=== PATIENT | female | born 1950 | race Hispanic/Latino ===

== ENCOUNTER 2018-05-30 20:45 | Inpatient (IN) | payer MEDICARE, BC ==
[2018-05-30 20:46] VITALS: PULSE 158; BMI 19.9
[2018-05-30] MEDS ORDERED: Albuterol 0.083% Inhal Sol (2.5 mg/3 mL) UD IH STA (20:54)
--- NOTE | 2018-05-30 21:08 | C.PDOC ---
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 Time Seen by Provider: 05/30/18 20:48 Chief Complaint (Nursing): Shortness Of Breath History Per: EMS History/Exam Limitations: clinical condition Onset/Duration Of Symptoms: Hrs Current Symptoms Are (Timing): Still Present Current Respiratory Medications: See Home Med List Severity: Moderate Past Medical History Reviewed: Historical Data, Nursing Documentation, Vital Signs Vital Signs: Last Vital Signs Temp 97.4 F L 05/30/18 20:50 Pulse 109 H 05/30/18 20:50 Resp 39 H 05/30/18 20:50 BP 158/74 H 05/30/18 20:50 Pulse Ox 83 L 05/30/18 20:50 - Medical History PMH: CAD, HTN, Hypercholesterolemia, Hypothyroidism - [facility] Procedures CONTR CEREBR ARTERIOGRAM (02/14/14) CONTRAST AORTOGRAM (02/14/14) ENTERAL INFUSION OF CONCENTRATED NUT. SUBSTANCES (03/20/14) INSERTION OF FEEDING DEVICE INTO STOMACH, PERC APPROACH (02/08/18) INSERTION OF TWO VASCULAR STENTS (02/14/14) NEPHROTOMOGRAM NEC (11/01/99) OTHER ESOPHAGOSCOPY (11/01/99) PERC INSERTION OF CAROTID ARTERY STENT(S) (02/14/14) PERCUTANEOUS ANGIOPLASTY OF EXTRACRANIAL VESSEL(S) (02/14/14) PROCEDURE ON TWO VESSELS (02/14/14) Family History: States: No Known Family Hx - Social History Hx Alcohol Use: No Hx Substance Use: No - Immunization History Hx Tetanus Toxoid Vaccination: No Review Of Systems Review Of Systems: ROS cannot be obtained secondary to pt's inabilty to answer questions. Physical Exam - Physical Exam Appears: In Acute Distress (in moderate to severe respiratory distress), Chr onically Ill Skin: Normal Color, Warm, Dry Head: Normacephalic Eye(s): right: Normal Inspection, left: Other (blindness, unable to blink) Oral Mucosa: Moist Neck: Other (left neck chronic wound with dressing) Cardiovascular: Rhythm Regular (tachycardic ), Murmur (holosystolic murmur 3/6) Respiratory: Accessory Muscle Use (moderate), No Rales, Rhonchi (B/L ), Wheezing (mild) Gastrointestinal/Abdominal: Normal Exam, Bowel Sounds, Soft, No Tenderness, Other (PEG tube present) Extremity: Normal ROM, No Pedal Edema, No Calf Tenderness Pulses: Left Dorsalis Pedis: Normal, Right Dorsalis Pedis: Normal Neurological/Psych: Other (nonverbal but awake & alert, able to follow commands) ED Course And Treatment - Laboratory Results Result Diagrams: 06/08/18 06:23 06/08/18 06:23 ECG: Interpreted By Me, Viewed By Me (Sinus tachycardia 103 bpm, normal axis, 1mm ST depressions II, aVF, V4-V6) ECG Interpretation: Abnormal O2 Sat by Pulse Oximetry: 83 (RA) Pulse Ox Interpretation: Abnormal Progress Note: Blood work, CXR, EKG ordered and reviewed. Patient placed on Bipap emergently. Albuterol treatment and small IV NS bolus given. CXR shows right sided infiltrates - broad spectrum antibiotics given (patient is in NH). As per family at bedside, patient was just discharged from [facility] on thursday (05/28) for pneumonia. PMD is Dr. Becky Lang at [place]. Patient does not have local oncologist, oncology care was happening at [facility]. 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 Critical Care Time - Critical Care Note Total Time (in mins): 35 Documented critical care: time excludes all time spent performing seperately billable procedures. Disposition - Disposition Disposition: HOSPITALIZED Disposition Time: 23:22 Condition: STABLE - Clinical Impression Clinical Impression: Elevated brain natriuretic peptide (BNP) level, Dyspnea, Leukocytosis, Pneumonia Decision To Admit - Pt Status Changed To: Hospital Disposition Of: Inpatient - Admit Certification Admit to Inpatient:: After my assessment, the patient will require hospitalization for at least two midnights. This is because of the severity of symptoms shown, intensity of services needed, and/or the medical risk in this patient being treated as an outpatient. - InPatient: Physician Admission Certification: I certify that this patient requires 2 or more midnights of care for the following reason:: see notes - . Bed Request Type: Telemetry Admitting Physician: Faviola Catherine Patient Diagnosis: Elevated brain natriuretic peptide (BNP) level, Leukocytosis, Dyspnea, Pneumonia
[2018-05-30 21:09] LABS: BASO # 0.2 K/uL (0.0-0.2); BASO % 0.5 % (0.0-2.0); EOS # 0.3 K/uL (0.0-0.7); EOS % 0.7 % (0.0-4.0); HEMOGLOBIN 11.4 g/dL (11.0-16.0); LYMPH # 2.1 K/uL (1.0-4.3); LYMPH % 4.7 % (20.0-40.0); MEAN CELL VOLUME 77.4 fL (81.0-99.0); MEAN CORPUSCULAR HEMOGLOBIN 24.1 pg (27.0-31.0); MEAN CORPUSCULAR HGB CONC 31.1 g/dL (33.0-37.0); MEAN PLATELET VOLUME 7.9 fL (7.2-11.7); MONO # 1.2 K/uL (0.0-0.8); MONO % 2.6 % (0.0-10.0); NEUT # 41.2 K/uL (1.8-7.0); NEUT % 91.5 % (50.0-75.0); PLATELET COUNT 844 K/uL (130-400); RBC 4.71 Mil/uL (3.80-5.20); RED CELL DISTRIBUTION WIDTH 18.2 % (11.5-14.5)
[2018-05-30 21:19] LABS: ALBUMIN 4.2 g/dL (3.5-5.0); ALT/SGPT 19 U/L (9-52); AST/SGOT 32 U/L (14-36); BLOOD UREA NITROGEN 42 mg/dL (7-17); CALCIUM 9.7 mg/dl (8.6-10.4); GFR NON-AFRICAN AMERICAN > 60; INR 1.7; PROTHROMBIN TIME 18.9 SECONDS (9.7-12.2)
[2018-05-30 21:22] LABS: ABG ALLEN TEST PO; ARTERIAL BLOOD GAS HCO3 28.6 mmol/L (21-28); ARTERIAL BLOOD GAS O2 SAT 100.2 % (95-98); ARTERIAL BLOOD GAS PCO2 51 mm/Hg (35-45); ARTERIAL BLOOD GAS PH 7.39 (7.35-7.45); ARTERIAL BLOOD GAS PO2 143 mm/Hg (80-100); ARTERIAL BLOOD GAS TCO2 32.5 mmol/L (22-28)
[2018-05-30] MEDS ORDERED: Vancomycin 1 GM 1 GM/250 ML BAG IV STA (21:26)
[2018-05-30] MEDS ORDERED: Cefepime 1 GM in Sodium Chloride 0.9% 50 ML IVPB STA (21:27)
[2018-05-30] MEDS ORDERED: Moxifloxacin IV 400mg/250ml NS 400 MG/250 ML BAG IV STA (21:27)
[2018-05-30] MEDS ORDERED: Sodium Chloride 0.9% 500 ML IV ONE (21:28)
[2018-05-30 21:31] LABS: B-TYPE NATRIURETIC PEPTIDE 1010 pg/mL (0-900); CK-MB 1.14 ng/mL (0.0-3.38)
[2018-05-30 21:37] LABS: BANDS 8 % (0-2); LYMPHOCYTE 5 % (20-40); MONOCYTE 2 % (0-10); NEUTROPHIL 85 % (50-75); TOTAL CELLS COUNTED 100
[2018-05-30 21:38] LABS: PLATELET ESTIMATE MARKEDLY INCREASED (NORMAL)
[2018-05-30 21:39] LABS: ANISOCYTOSIS SLIGHT; HYPOCHROMIC SLIGHT; LARGE PLATELETS PRESENT; MICROCYTOSIS SLIGHT; OVALOCYTES SLIGHT; POIKILOCYTOSIS SLIGHT; POLYCHROMIC SLIGHT; TOXIC GRANULATION PRESENT
[2018-05-30] MEDS ORDERED: Albuterol 0.083% Inhal Sol (2.5 mg/3 mL) UD ONE (21:40)
[2018-05-30] MEDS ORDERED: Moxifloxacin IV 400mg/250ml NS 400 MG/250 ML BAG IVPB ONE (21:42)
[2018-05-30] MEDS ORDERED: Cefepime 1 GM in Sodium Chloride 0.9% 100 ML IVPB STA (21:54)
[2018-05-30] MEDS ORDERED: Vancomycin 1 GM 1 GM/250 ML BAG IVPB ONE (22:17)
[2018-05-30] MEDS ORDERED: Iodixanol 320 MG/ML 100 ML BOTTLE IV ONE (22:43)
[2018-05-31] MEDS ORDERED: oxyCODONE 5 mg Immediate Release Tab GT PRN (02:01)
[2018-05-31] MEDS ORDERED: Carboxymethylcellulose 1% Ophth Soln OU PRN (02:30)
[2018-05-31] MEDS: Levothyroxine 25 MCG TAB GT SCH (05:37)
[2018-05-31] MEDS: Albuterol-Ipratrop 3 mg / 0.5 (3 ml) UD INH SCH ×3 (07:29→19:23)
--- NOTE | 2018-05-31 08:44 | RAD ---
Date of service: 05/30/2018 PROCEDURE: CHEST RADIOGRAPH, 1 VIEW HISTORY: SOB COMPARISON: None available. FINDINGS: LUNGS: The lungs are hyperinflated. There are reticulonodular opacities in the right lung. No focal consolidation PLEURA: No pneumothorax or pleural fluid seen. CARDIOVASCULAR: Normal. OSSEOUS STRUCTURES: No significant abnormalities. VISUALIZED UPPER ABDOMEN: Normal. OTHER FINDINGS: None. IMPRESSION: Reticulonodular opacities in the right lung may represent nonspecific pneumonitis. No lobar pneumonia. Follow-up is advised.
[2018-05-31] MEDS: oxyCODONE 5 mg Immediate Release Tab GT PRN ×2 (10:19→23:30)
--- NOTE | 2018-05-31 11:14 | CT ---
Date of service: 05/30/2018 CTA chest PE protocol Indication: malignancy, dyspnea, r/o PE Technique: Contiguous axial images were obtained through the chest with intravenous contrast enhancement. Sagittal and coronal reconstructions were generated and reviewed. This CT exam was performed using 1 or more of the following dose reduction techniques: Automated exposure control, adjustment of the MAA and/or kV according to patient size, and/or use of iterative reconstruction technique. IV contrast: 100 mL Visipaque IV Radiation dose (DLP): 256.07 MGy-cm. Comparison: Chest x-ray performed 05/30/18 Findings: The heart appears within normal limits of size. Coronary artery calcifications. Prosthetic cardiac valve. Extensive bilateral hilar adenopathy. No large central or segmental pulmonary embolus evident. No focal consolidation. No pleural effusion. No pneumothorax. Innumerable scattered irregular and spiculated lung nodules consistent with metastatic disease. Scattered tree-in-bud like nodular opacities present throughout both lung benton with associated ground-glass confluent opacities. Limited visualized portions of the upper abdomen; percutaneous gastrostomy tube. Degenerative changes. Osseous demineralization. Impression: No large central or segmental pulmonary embolus identified. Innumerable bilateral nodules which appear irregular and spiculated; consistent with metastatic disease. Scattered tree-in-bud like nodularity and ground-glass infiltrates; superimposed infection is not excluded. Extensive bilateral hilar adenopathy. Percutaneous gastrostomy tube. Additional findings as above. Preliminary impression was provided by [facility].
--- NOTE | 2018-05-31 12:43 | CP.PCM.CON ---
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 AWAKE ALERT + SOB AT REST DENIES PAIN LARGE WOUND LEFT NECK WITH FACIAL WEA KNESS LEFT SIDE RALES AT BASES - Medical History PMH: CAD, HTN, Hypercholesterolemia, Hypothyroidism - [facility] Procedures CONTR CEREBR ARTERIOGRAM (02/14/14) CONTRAST AORTOGRAM (02/14/14) ENTERAL INFUSION OF CONCENTRATED NUT. SUBSTANCES (03/20/14) INSERTION OF FEEDING DEVICE INTO STOMACH, PERC APPROACH (02/08/18) INSERTION OF TWO VASCULAR STENTS (02/14/14) NEPHROTOMOGRAM NEC (11/01/99) OTHER ESOPHAGOSCOPY (11/01/99) PERC INSERTION OF CAROTID ARTERY STENT(S) (02/14/14) PERCUTANEOUS ANGIOPLASTY OF EXTRACRANIAL VESSEL(S) (02/14/14) PROCEDURE ON TWO VESSELS (02/14/14) Past Patient History - Infectious Disease Hx of Infectious Diseases: None - Tetanus Immunizations Tetanus Immunization: Unknown - Past Medical History & Family History Past Medical History?: Yes - Past Social History Smoking Status: Former Smoker - CARDIAC Hx Cardiac Disorders: Yes Hx Hypercholesterolemia: Yes Hx Hypertension: Yes - PULMONARY Hx Respiratory Disorders: No - NEUROLOGICAL Hx Neurological Disorder: Yes HX Cerebrovascular Accident: Yes (R hemiparesis) - HEENT Hx HEENT Problems: Yes Other/Comment: right eye droop - RENAL Hx Chronic Kidney Disease: No - ENDOCRINE/METABOLIC Hx Endocrine Disorders: Yes Hx Hypothyroidism: Yes - HEMATOLOGICAL/ONCOLOGICAL Hx Blood Disorders: No Hx Blood Transfusions: No Hx Cancer: Yes (Parotid Glands) - INTEGUMENTARY Hx Dermatological Problems: No - MUSCULOSKELETAL/RHEUMATOLOGICAL Hx Musculoskeletal Disorders: No Hx Falls: No - GASTROINTESTINAL Hx Gastrointestinal Disorders: No Other/Comment: PEG tube feeding secondary to CA -Parotid Glands - GENITOURINARY/GYNECOLOGICAL Hx Genitourinary Disorders: No - PSYCHIATRIC Hx Psychophysiologic Disorder: No Hx Substance Use: No - SURGICAL HISTORY Hx Surgeries: Yes Hx Open Heart Surgery: Yes - ANESTHESIA Hx Anesthesia: Yes Hx Anesthesia Reactions: No Hx Malignant Hyperthermia: No Has any member of the family had a problem w/ anesthesia?: No Meds Allergies/Adverse Reactions: Allergies Allergy/AdvReac Type Severity Reaction Status Date / Time No Known Allergies Allergy Verified 05/30/18 20:53 - Medications Medications: Current Medications Albuterol/Ipratropium (Duoneb 3 Mg/0.5 Mg (3 Ml) Ud) 3 ml INH RQ6 [facility] Last Admin: 05/31/18 07:29 Dose: 3 ml Amlodipine Besylate (Norvasc) 10 mg GT DAILY [facility] Apixaban (Eliquis) 5 mg GT BID [facility] Last Admin: 05/31/18 10:12 Dose: 5 mg Artificial Tears (Artificial Tears Refresh Celluvisc) 0 ml OU Q6H PRN Aspirin (Aspirin Chewable) 81 mg GT DAILY [facility] Last Admin: 05/31/18 10:11 Dose: 81 mg Docusate Sodium (Colace) 100 mg GT BID [facility] Last Admin: 05/31/18 10:11 Dose: 100 mg Famotidine (Pepcid) 20 mg GT Q12 [facility] Last Admin: 05/31/18 10:10 Dose: 20 mg Furosemide (Lasix) 20 mg PEG DAILY [facility] Last Admin: 05/31/18 10:26 Dose: Not Given Moxifloxacin HCl (Avelox Iv 400mg/250ml Ns) 400 mg in 250 mls @ 167 mls/hr IVPB Q24H [facility]; Protocol Levothyroxine Sodium (Synthroid) 25 mcg GT DAILY@0630 [facility] Last Admin: 05/31/18 05:37 Dose: 25 mcg Metoprolol Tartrate (Lopressor) 25 mg GT Q12 [facility] Last Admin: 05/31/18 10:26 Dose: Not Given Ondansetron HCl (Zofran Tab) 4 mg GT Q6 PRN PRN Reason: Nausea/Vomiting Oxycodone HCl (Oxycodone Immediate Release Tab) 5 mg GT Q6 PRN PRN Reason: Pain, moderate (4-7) Last Admin: 05/31/18 10:19 Dose: 5 mg Rosuvastatin Calcium (Crestor) 5 mg PO HS [facility] Saliva Substitute (Mouth Kote 236 Ml) 0 ml MM TID NARENDRA Scopolamine (Transderm-Scop) 1 patch TD Q72 [facility] Sennosides (Senokot Tab) 8.6 mg PEG HS [facility] Physical Exam - Constitutional Appears: Cachectic - Head Exam Head Exam: NORMOCEPHALIC - Eye Exam Eye Exam: absent: Scleral icterus - ENT Exam ENT Exam: Mucous Membranes Dry - Neck Exam Neck exam: Negative for: Lymphadenopathy - Respiratory Exam Respiratory Exam: Decreased Breath Sounds, Rales - Cardiovascular Exam Cardiovascular Exam: REGULAR RHYTHM - GI/Abdominal Exam GI & Abdominal Exam: Diminished Bowel Sounds - Rectal Exam Rectal Exam: Deferred - Exam Exam: NORMAL INSPECTION - Extremities Exam Extremities exam: Negative for: pedal edema - Back Exam Back exam: absent: CVA tenderness (L), CVA tenderness (R) - Neurological Exam Neurological exam: Alert, Oriented x3 - Psychiatric Exam Psychiatric exam: Depressed - Skin Skin Exam: Dry Results - Vital Signs Recent Vital Signs: Last Vital Signs Temp 97.3 F L 05/31/18 07:10 Pulse 72 05/31/18 08:48 Resp 18 05/31/18 07:10 BP 101/67 05/31/18 10:26 Pulse Ox 100 05/31/18 07:10 - Labs Result Diagrams: 05/30/18 21:02 05/30/18 21:02 Labs: Laboratory Results - last 24 hr 05/30/18 05/30/18 05/30/18 21:02 21:02 21:02 WBC 45.0 H* RBC 4.71 Hgb 11.4 Hct 36.4 MCV 77.4 L MCH 24.1 L MCHC 31.1 L RDW 18.2 H Plt Count 844 H MPV 7.9 Neut % (Auto) 91.5 H Lymph % (Auto) 4.7 L Atlantic % (Auto) 2.6 Eos % (Auto) 0.7 Baso % (Auto) 0.5 Neut # (Auto) 41.2 H Lymph # (Auto) 2.1 [place] # (Auto) 1.2 H Eos # (Auto) 0.3 Baso # (Auto) 0.2 Neutrophils % (Manual) 85 H Band Neutrophils % 8 H Lymphocytes % (Manual) 5 L Monocytes % (Manual) 2 Toxic Granulation Present Platelet Estimate Markedly increased H Large Platelets Present Polychromasia Slight Hypochromasia (manual) Slight Poikilocytosis (manual Slight Anisocytosis (manual) Slight Microcytosis (manual) Slight Ovalocytes Slight Smear Path Review PT 18.9 H INR 1.7 APTT 36 H Puncture Site pCO2 pO2 HCO3 ABG pH ABG Total CO2 ABG O2 Saturation ABG Base Excess Gio Test ABG Potassium A-a O2 Difference Respiratory Index Glucose Lactate Vent Mode FiO2 Inspiratory BiPAP Expiratory BiPAP Sodium 143 Potassium 5.2 Chloride 95 L Carbon Dioxide 30 Anion Gap 23 H BUN 42 H Creatinine 0.8 Est GFR ( Amer) > 60 Est GFR (Non-Af Amer) > 60 Random Glucose 258 H Calcium 9.7 Total Bilirubin 0.5 AST 32 ALT 19 Alkaline Phosphatase 120 Total Creatine Kinase 24 L CK-MB (Mass) 1.14 Troponin I 0.0160 NT-Pro-B Natriuret Pep 1010 H Total Protein 8.3 Albumin 4.2 Globulin 4.1 H Albumin/Globulin Ratio 1.0 Arterial Blood Potassium 05/30/18 21:19 WBC RBC Hgb Hct MCV MCH MCHC RDW Plt Count MPV Neut % (Auto) Lymph % (Auto) Atlantic % (Auto) Eos % (Auto) Baso % (Auto) Neut # (Auto) Lymph # (Auto) Atlantic # (Auto) Eos # (Auto) Baso # (Auto) Neutrophils % (Manual) Band Neutrophils % Lymphocytes % (Manual) Monocytes % (Manual) Toxic Granulation Platelet Estimate Large Platelets Polychromasia Hypochromasia (manual) Poikilocytosis (manual Anisocytosis (manual) Microcytosis (manual) Ovalocytes Smear Path Review PT INR APTT Puncture Site Lr pCO2 51 H pO2 143 H HCO3 28.6 H ABG pH 7.39 ABG Total CO2 32.5 H ABG O2 Saturation 100.2 H ABG Base Excess 4.7 H Gio Test Po ABG Potassium 4.1 A-a O2 Difference 506.0 Respiratory Index 3.5 Glucose 267 H Lactate 2.0 Vent Mode Bipap FiO2 100.0 Inspiratory BiPAP 14 Expiratory BiPAP 5 Sodium 139.0 Potassium Chloride 105.0 Carbon Dioxide Anion Gap BUN Creatinine Est GFR ( Amer) Est GFR (Non-Af Amer) Random Glucose Calcium Total Bilirubin AST ALT Alkaline Phosphatase Total Creatine Kinase CK-MB (Mass) Troponin I NT-Pro-B Natriuret Pep Total Protein Albumin Globulin Albumin/Globulin Ratio Arterial Blood Potassium 4.1 Assessment & Plan (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
--- NOTE | 2018-05-31 18:34 | CARD ---
APPROVED REPORT Date of service: 05/30/2018 EKG Measurement Heart [id number] <Conclusion> Sinus tachycardia Nonspecific ST and T wave abnormality Abnormal ECG
[2018-05-31] MEDS: Moxifloxacin IV 400mg/250ml NS 400 MG/250 ML BAG IVPB SCH (22:32)
[2018-06-01] MEDS ORDERED: Oseltamivir 6 MG/ML PO ONE (00:48)
--- NOTE | 2018-06-01 01:27 | CP.PCM.HP ---
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 Present on Admission - Present on Admission Any Indicators Present on Admission: Yes Review of Systems - Review of Systems Systems not reviewed;Unavailable: Respiratory Distress - Constitutional Constitutional: As Per HPI - EENT Eyes: As Per HPI Ears: As Per HPI Nose/Mouth/Throat: As Per HPI - Breasts Breasts: As Per HPI - Cardiovascular Cardiovascular: As Per HPI - Respiratory Respiratory: As Per HPI - Gastrointestinal Gastrointestinal: As Per HPI - Musculoskeletal Musculoskeletal: As Per HPI - Integumentary Integumentary: As Per HPI - Neurological Neurological: As Per HPI - Psychiatric Psychiatric: As Per HPI - Endocrine Endocrine: As Per HPI - Hematologic/Lymphatic Hematologic: As Per HPI Past Patient History - Infectious Disease Hx of Infectious Diseases: None - Tetanus Immunizations Tetanus Immunization: Unknown - Past Medical History & Family History Past Medical History?: Yes - Past Social History Smoking Status: Former Smoker - CARDIAC Hx Cardiac Disorders: Yes Hx Hypercholesterolemia: Yes Hx Hypertension: Yes - PULMONARY Hx Respiratory Disorders: No - NEUROLOGICAL Hx Neurological Disorder: Yes HX Cerebrovascular Accident: Yes (R hemiparesis) - HEENT Hx HEENT Problems: Yes Other/Comment: right eye droop - RENAL Hx Chronic Kidney Disease: No - ENDOCRINE/METABOLIC Hx Endocrine Disorders: Yes Hx Hypothyroidism: Yes - HEMATOLOGICAL/ONCOLOGICAL Hx Blood Disorders: No Hx Blood Transfusions: No Hx Cancer: Yes (Parotid Glands) - INTEGUMENTARY Hx Dermatological Problems: No - MUSCULOSKELETAL/RHEUMATOLOGICAL Hx Musculoskeletal Disorders: No Hx Falls: No - GASTROINTESTINAL Hx Gastrointestinal Disorders: No Other/Comment: PEG tube feeding secondary to CA -Parotid Glands - GENITOURINARY/GYNECOLOGICAL Hx Genitourinary Disorders: No - PSYCHIATRIC Hx Psychophysiologic Disorder: No Hx Substance Use: No - SURGICAL HISTORY Hx Surgeries: Yes Hx Open Heart Surgery: Yes - ANESTHESIA Hx Anesthesia: Yes Hx Anesthesia Reactions: No Hx Malignant Hyperthermia: No Has any member of the family had a problem w/ anesthesia?: No Meds Allergies/Adverse Reactions: Allergies Allergy/AdvReac Type Severity Reaction Status Date / Time No Known Allergies Allergy Verified 05/30/18 20:53 Physical Exam - Constitutional Appears: No Acute Distress - Head Exam Head Exam: ATRAUMATIC, NORMAL INSPECTION, NORMOCEPHALIC - Eye Exam Eye Exam: EOMI, Normal appearance - ENT Exam ENT Exam: Mucous Membranes Moist, Normal Oropharynx - Neck Exam Neck exam: Positive for: Full Rom - Respiratory Exam Respiratory Exam: Accessory Muscle Use - Cardiovascular Exam Cardiovascular Exam: Tachycardia - Extremities Exam Extremities exam: Positive for: full ROM Results - Vital Signs Recent Vital Signs: Last Vital Signs Temp 97.8 F 05/31/18 23:25 Pulse 88 05/31/18 23:25 Resp 20 05/31/18 23:25 BP 111/79 05/31/18 23:25 Pulse Ox 100 05/31/18 23:25 - Labs Result Diagrams: 05/30/18 21:02 05/30/18 21:02 Labs: Laboratory Results - last 24 hr 05/30/18 05/31/18 05/31/18 21:02 15:34 21:04 Smear Path Review POC Glucose (mg/dL) 134 H 148 H Influenza Typ A,B ([facility]) 05/31/18 22:16 Smear Path Review POC Glucose (mg/dL) Influenza Typ A,B ([facility]) Pos for influenza b H Assessment & Plan (1) Flu Status: Acute (2) CVA (cerebral vascular accident) Status: Acute (3) Carcinoma of parotid gland Status: Acute (4) Carotid artery occlusion and stenosis Status: Acute (5) DVT (deep venous thrombosis) Status: Acute (6) Fever Status: Acute (7) Leukocytosis Status: Acute (8) New onset atrial fibrillation Status: Acute (9) Pneumonia Status: Acute (10) Sepsis Status: Acute (11) Urinary tract infection Status: Acute (12) Wound dehiscence, surgical Status: Acute (13) Wound infection Status: Acute (14) CVA (cerebrovascular accident) Status: Chronic (15) Aphasia Status: Resolved - Assessment and Plan (Free Text) Plan: id is on the case . tame flu started rest , pul on the case , will f/u
[2018-06-01] MEDS: Levothyroxine 25 MCG TAB GT SCH (05:35)
--- NOTE | 2018-06-01 06:47 | CP.PCM.CON ---
History of Present Illness - History of Present Illness History of Present Illness: 67 F with multiple medical problems admitted for dyspnea Past Patient History - Infectious Disease Hx of Infectious Diseases: None - Tetanus Immunizations Tetanus Immunization: Unknown - Past Medical History & Family History Past Medical History?: Yes - Past Social History Smoking Status: Former Smoker - CARDIAC Hx Cardiac Disorders: Yes Hx Hypercholesterolemia: Yes Hx Hypertension: Yes - PULMONARY Hx Respiratory Disorders: No - NEUROLOGICAL Hx Neurological Disorder: Yes HX Cerebrovascular Accident: Yes (R hemiparesis) - HEENT Hx HEENT Problems: Yes Other/Comment: right eye droop - RENAL Hx Chronic Kidney Disease: No - ENDOCRINE/METABOLIC Hx Endocrine Disorders: Yes Hx Hypothyroidism: Yes - HEMATOLOGICAL/ONCOLOGICAL Hx Blood Disorders: No Hx Blood Transfusions: No Hx Cancer: Yes (Parotid Glands) - INTEGUMENTARY Hx Dermatological Problems: No - MUSCULOSKELETAL/RHEUMATOLOGICAL Hx Musculoskeletal Disorders: No Hx Falls: No - GASTROINTESTINAL Hx Gastrointestinal Disorders: No Other/Comment: PEG tube feeding secondary to CA -Parotid Glands - GENITOURINARY/GYNECOLOGICAL Hx Genitourinary Disorders: No - PSYCHIATRIC Hx Psychophysiologic Disorder: No Hx Substance Use: No - SURGICAL HISTORY Hx Surgeries: Yes Hx Open Heart Surgery: Yes - ANESTHESIA Hx Anesthesia: Yes Hx Anesthesia Reactions: No Hx Malignant Hyperthermia: No Has any member of the family had a problem w/ anesthesia?: No Meds Allergies/Adverse Reactions: Allergies Allergy/AdvReac Type Severity Reaction Status Date / Time No Known Allergies Allergy Verified 05/30/18 20:53 - Medications Medications: Current Medications Albuterol/Ipratropium (Duoneb 3 Mg/0.5 Mg (3 Ml) Ud) 3 ml INH RQ6 [facility] Last Admin: 05/31/18 19:23 Dose: 3 ml Amlodipine Besylate (Norvasc) 10 mg GT DAILY [facility] Apixaban (Eliquis) 5 mg GT BID [facility] Last Admin: 05/31/18 19:56 Dose: 5 mg Artificial Tears (Artificial Tears Refresh Celluvisc) 0 ml OU Q6H PRN Aspirin (Aspirin Chewable) 81 mg GT DAILY [facility] Last Admin: 05/31/18 10:11 Dose: 81 mg Docusate Sodium (Colace) 100 mg GT BID [facility] Last Admin: 05/31/18 19:56 Dose: 100 mg Famotidine (Pepcid) 20 mg GT Q12 [facility] Last Admin: 05/31/18 23:00 Dose: 20 mg Furosemide (Lasix) 20 mg PEG DAILY [facility] Last Admin: 05/31/18 10:26 Dose: Not Given Moxifloxacin HCl (Avelox Iv 400mg/250ml Ns) 400 mg in 250 mls @ 167 mls/hr IVPB Q24H [facility]; Protocol Last Admin: 05/31/18 22:32 Dose: 167 mls/hr Cefepime HCl 1 gm/ Dextrose 50 mls @ 100 mls/hr IVPB Q12H [facility]; Protocol Last Admin: 06/01/18 00:53 Dose: 100 mls/hr Levothyroxine Sodium (Synthroid) 25 mcg GT DAILY@0630 [facility] Last Admin: 06/01/18 05:35 Dose: 25 mcg Metoprolol Tartrate (Lopressor) 25 mg GT Q12 [facility] Last Admin: 05/31/18 23:01 Dose: Not Given Ondansetron HCl (Zofran Tab) 4 mg GT Q6 PRN PRN Reason: Nausea/Vomiting Oseltamivir Phosphate (Tamiflu Cap) 75 mg PO BID [facility]; Protocol Stop: 06/06/18 00:26 Oxycodone HCl (Oxycodone Immediate Release Tab) 5 mg GT Q6 PRN PRN Reason: Pain, moderate (4-7) Last Admin: 05/31/18 23:30 Dose: 5 mg Rosuvastatin Calcium (Crestor) 5 mg PO HS [facility] Last Admin: 05/31/18 23:00 Dose: 5 mg Saliva Substitute (Mouth Kote 236 Ml) 0 ml MM TID [facility] Last Admin: 05/31/18 19:57 Dose: 1 spr Scopolamine (Transderm-Scop) 1 patch TD Q72 [facility] Sennosides (Senokot Tab) 8.6 mg PEG HS [facility] Last Admin: 05/31/18 23:02 Dose: 8.6 mg Results - Vital Signs Recent Vital Signs: Last Vital Signs Temp 97.4 F L 06/01/18 04:00 Pulse 79 06/01/18 04:00 Resp 20 06/01/18 04:00 BP 131/62 06/01/18 04:00 Pulse Ox 100 06/01/18 04:00 - Labs Result Diagrams: 05/30/18 21:02 05/30/18 21:02 Labs: Laboratory Results - last 24 hr 1005/31/18 05/31/18 21:02 15:34 21:04 Smear Path Review POC Glucose (mg/dL) 134 H 148 H Hemoglobin A1c Influenza Typ A,B ([facility]) 05/31/18 06/01/18 22:16 06:34 Smear Path Review POC Glucose (mg/dL) Hemoglobin A1c 6.5 Influenza Typ A,B ([facility]) Pos for influenza b H
[2018-06-01 06:58] LABS: IRON < 10 ug/dL (37-170)
[2018-06-01 07:09] LABS: TOTAL IRON BINDING CAPACITY 300 ug/dL (250-450)
--- NOTE | 2018-06-01 07:20 | CON ---
DATE: 05/31/2018 LOCATION: The patient was seen on the sixth tower, bed number 658 B. HISTORY OF PRESENT ILLNESS: Chart, lab data, imaging studies, peripheral smear etc reviewed and discussed with the patient and all involved. Ms. Urrutia is a 67-year-old female who is admitted with shortness of breath and cough. The patient is on intravenous antibiotics, bronchodilator treatment, and supplemental oxygen. The patient was found to have a lung infiltrate, bilateral lung nodules, and bilateral hilar adenopathies on CT scan of the chest. The patient has history of coronary artery disease, hypertension, mitral valve replacement, and acute fibrillation. The patient also has a history of CVA and residual right-sided weakness. 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 The patient also has a history of treatment at [facility] for her parotid cancer. I have not seen the record, but I would like to review the actual record of her parotid cancer, which the patient will get it for us. The patient is also going to be seen by waxed bag machine operator. The patient is already seen by Infectious Disease, Dr. Lynn and Dr. Abraham. The patient has been getting intravenous antibiotics for possible pneumonia. The patient denies any chest pain or headaches. The patient denies any fever. The patient denies any nausea, vomiting, or abdominal pain. The patient denies any bleeding. REVIEW OF SYSTEMS: As states above. PHYSICAL EXAMINATION: GENERAL: The patient is uncomfortable and has shortness of breath. The patient is afebrile. The patient is getting bronchodilator inhaler treatment at the current time. HEENT: Anicteric. NECK: Supple. No adenopathies. CHEST: Bilateral air, bilateral expiratory rhonchi present. Few basilar crackles also present. ABDOMEN: Soft and nontender. Bowel sounds present. No palpable hepatosplenomegaly. EXTREMITIES: Bilateral extremity, no cyanosis, no clubbing. NEUROLOGIC: The patient is alert and awake and communicating with the help of writing in the notebooks because of her shortness of breath. ASSESSMENT AND PLAN: Ms. Urrutia is a 67-year-old female who was admitted to the [facility] with shortness of breath, cough, and possible pneumonia. She has been treated with intravenous antibiotics and bronchodilator inhalation treatment. The patient is also getting supplemental oxygen. The patient reportedly has the history of parotid gland cancer for which she was treated at [facility] in [place]. The patient is also found to have leukocytosis with white cell count of 45,000 and thrombocytosis with a count of 844,000. The patient is getting intravenous antibiotics. The CT scan of the chest did not find any evidence of pulmonary embolism, however, it was found that the patient has bilateral lung nodules and bilateral extensive hilar adenopathies. The differential diagnosis of this pulmonary findings includes infectious versus inflammatory versus neoplastic process. Rule out metastatic cancer, either from the parotid gland metastasis or one should rule out lung cancer in this patient. I suggest that after stabilization and adequate intravenous antibiotics, I would suggest that the patient undergo bronchoscopic evaluation and possible bronchial lavage and possible transbronchial biopsy to rule malignancy in this patient. In the meantime, the peripheral smear showed that there is a shift to the left with polymorphonuclear leukocytosis. There is no evidence of any premature white cells in the peripheral smear. Continue aggressive supportive care, antibiotics, bronchoscopy, and we will see what is the final report of pathologic evaluation after bronchoscopy is performed. This was discussed in great detail with Dr. Catherine and all involved. We will follow the patient. Katiuska Olivares MD
[2018-06-01 08:01] LABS: % IRON SATURATION 8 (20-55)
[2018-06-01 08:59] LABS: FOLATE 9.8 ng/mL
[2018-06-01] MEDS: Albuterol-Ipratrop 3 mg / 0.5 (3 ml) UD INH SCH ×3 (09:05→20:28)
[2018-06-01 10:30] LABS: BASO # 0.1 K/uL (0.0-0.2); BASO % 0.4 % (0.0-2.0); EOS # 0.4 K/uL (0.0-0.7); EOS % 2.5 % (0.0-4.0); LYMPH # 1.3 K/uL (1.0-4.3); LYMPH % 7.5 % (20.0-40.0); MEAN CELL VOLUME 78.6 fL (81.0-99.0); MEAN CORPUSCULAR HEMOGLOBIN 24.3 pg (27.0-31.0); MEAN PLATELET VOLUME 8.2 fL (7.2-11.7); MONO # 1.2 K/uL (0.0-0.8); NEUT # 14.1 K/uL (1.8-7.0); NEUT % 82.6 % (50.0-75.0); RBC 3.57 Mil/uL (3.80-5.20); RED CELL DISTRIBUTION WIDTH 18.3 % (11.5-14.5)
[2018-06-01 10:32] LABS: HEMOGLOBIN 8.7 g/dL (11.0-16.0); PLATELET COUNT 451 K/uL (130-400); WHITE BLOOD COUNT 17.1 K/uL (4.8-10.8)
[2018-06-01 11:42] LABS: EOSINOPHIL 3 % (0-4); LYMPHOCYTE 6 % (20-40); MONOCYTE 8 % (0-10); NEUTROPHIL 83 % (50-75); TOTAL CELLS COUNTED 100
[2018-06-01 11:43] LABS: ANISOCYTOSIS SLIGHT; PLATELET ESTIMATE SLIGHTLY INCREASED (NORMAL)
[2018-06-01 11:47] LABS: HYPOCHROMIC SLIGHT; POLYCHROMIC SLIGHT
--- NOTE | 2018-06-01 12:35 | CP.PCM.PN ---
Subjective - Date & Time of Evaluation Date of Evaluation: 06/01/18 Time of Evaluation: 08:00 - Subjective Subjective: events noted + Influenza from admission IV rx in progress await cultures Objective - Vital Signs/Intake and Output Vital Signs (last 24 hours): Temp Pulse Resp BP Pulse Ox 97.6 F 73 20 116/59 L 100 06/01/18 08:36 06/01/18 08:36 06/01/18 08:36 06/01/18 11:34 06/01/18 08:36 Intake and Output: 06/01/18 06/01/18 06:59 18:59 Intake Total 660 Output Total 400 Balance 260 - Medications Medications: Current Medications Albuterol/Ipratropium (Duoneb 3 Mg/0.5 Mg (3 Ml) Ud) 3 ml INH RQ6 [facility] Last Admin: 05/31/18 19:23 Dose: 3 ml Amlodipine Besylate (Norvasc) 10 mg GT DAILY [facility] Last Admin: 06/01/18 11:33 Dose: 10 mg Apixaban (Eliquis) 5 mg GT BID [facility] Last Admin: 06/01/18 11:39 Dose: Not Given Artificial Tears (Artificial Tears Refresh Celluvisc) 0 ml OU Q6H PRN Aspirin (Aspirin Chewable) 81 mg GT DAILY [facility] Last Admin: 06/01/18 11:33 Dose: 81 mg Docusate Sodium (Colace) 100 mg GT BID [facility] Last Admin: 06/01/18 11:33 Dose: 100 mg Famotidine (Pepcid) 20 mg GT Q12 [facility] Last Admin: 06/01/18 11:33 Dose: 20 mg Furosemide (Lasix) 20 mg PEG DAILY [facility] Last Admin: 06/01/18 11:34 Dose: 20 mg Moxifloxacin HCl (Avelox Iv 400mg/250ml Ns) 400 mg in 250 mls @ 167 mls/hr IVPB Q24H [facility]; Protocol Last Admin: 05/31/18 22:32 Dose: 167 mls/hr Cefepime HCl 1 gm/ Dextrose 50 mls @ 100 mls/hr IVPB Q12H [facility]; Protocol Last Admin: 06/01/18 00:53 Dose: 100 mls/hr Levothyroxine Sodium (Synthroid) 25 mcg GT DAILY@0630 [facility] Last Admin: 06/01/18 05:35 Dose: 25 mcg Metoprolol Tartrate (Lopressor) 25 mg GT Q12 [facility] Last Admin: 06/01/18 11:34 Dose: Not Given Ondansetron HCl (Zofran Tab) 4 mg GT Q6 PRN PRN Reason: Nausea/Vomiting Oseltamivir Phosphate (Tamiflu Cap) 75 mg PO BID [facility]; Protocol Stop: 06/06/18 00:26 Last Admin: 06/01/18 11:33 Dose: 75 mg Oxycodone HCl (Oxycodone Immediate Release Tab) 5 mg GT Q6 PRN PRN Reason: Pain, moderate (4-7) Last Admin: 05/31/18 23:30 Dose: 5 mg Rosuvastatin Calcium (Crestor) 5 mg PO [facility] Last Admin: 05/31/18 23:00 Dose: 5 mg Saliva Substitute (Mouth Kote 236 Ml) 0 ml MM TID [facility] Last Admin: 06/01/18 11:34 Dose: 1 spr Scopolamine (Transderm-Scop) 1 patch TD Q72 [facility] Sennosides (Senokot Tab) 8.6 mg PEG [facility] Last Admin: 05/31/18 23:02 Dose: 8.6 mg - Labs Labs: 06/01/18 06:34 05/30/18 21:02 PT 18.9 SECONDS (9.7-12.2) H 05/30/18 21:02 INR 1.7 05/30/18 21:02 APTT 36 SECONDS (21-34) H 05/30/18 21:02 - Constitutional Appears: Confused, Cachectic, Chronically Ill - Head Exam Head Exam: NORMOCEPHALIC - Eye Exam Eye Exam: absent: Scleral icterus - ENT Exam ENT Exam: Mucous Membranes Dry - Neck Exam Neck Exam: absent: Lymphadenopathy - Respiratory Exam Respiratory Exam: Decreased Breath Sounds, Rhonchi - Cardiovascular Exam Cardiovascular Exam: REGULAR RHYTHM, +S1, +S2 - GI/Abdominal Exam GI & Abdominal Exam: Distended, Soft. absent: Tenderness - Rectal Exam Rectal Exam: Deferred - Exam Exam: NORMAL INSPECTION Assessment and Plan (1) Carcinoma of parotid gland Status: Acute (2) Carotid artery occlusion and stenosis Status: Acute (3) Fever Status: Acute (4) Leukocytosis Status: Acute (5) Pneumonia Status: Acute - Assessment and Plan (Free Text) Assessment: await cultures cont iv antibiotics
[2018-06-01 13:48] LABS: SQUAMOUS EPITHIAL 1 /hpf (0-5); URINE AMORPHOUS SEDIMENT FEW /ul (<OCC); URINE BILIRUBIN NEGATIVE (NEGATIVE); URINE BLOOD NEGATIVE (NEGATIVE); URINE CLARITY Hazy (Clear); URINE COLOR Yellow (YELLOW); URINE GLUCOSE (UA) NORMAL (Normal); URINE LEUKOCYTE ESTERASE NEG Leu/uL (Negative); URINE PROTEIN NEGATIVE (NEGATIVE)
--- NOTE | 2018-06-01 14:03 | CP.PCM.CON ---
History of Present Illness - History of Present Illness History of Present Illness: Pulmonary Consult, Covering Dr. Patterson THe patient was seen/interviewed and examined by me at bedside. Medical records reviewed and management issues were discussed and formulated with the house staff. Events reviewed. Chest CT 05/30/2018 - No large central or segmental pulmonary embolus identified. Innumerable scattered irregular spiculated lung nodules consistent with metastatic disease. Scattered tree-in-bud like nodular and ground-glass infiltrates; superimposed infection is not excluded. Extensive bilateral hilar adenopathy. Chest Xray 05/30/2018 - Reticulonodular opacities in the R lung may represent nonspecific pneumonitis. No lobar pneumonia. Past Patient History - Infectious Disease Hx of Infectious Diseases: None - Tetanus Immunizations Tetanus Immunization: Unknown - Past Medical History & Family History Past Medical History?: Yes - Past Social History Smoking Status: Former Smoker - CARDIAC Hx Cardiac Disorders: Yes Hx Hypercholesterolemia: Yes Hx Hypertension: Yes - PULMONARY Hx Respiratory Disorders: No - NEUROLOGICAL Hx Neurological Disorder: Yes HX Cerebrovascular Accident: Yes (R hemiparesis) - HEENT Hx HEENT Problems: Yes Other/Comment: right eye droop - RENAL Hx Chronic Kidney Disease: No - ENDOCRINE/METABOLIC Hx Endocrine Disorders: Yes Hx Hypothyroidism: Yes - HEMATOLOGICAL/ONCOLOGICAL Hx Blood Disorders: No Hx Blood Transfusions: No Hx Cancer: Yes (Parotid Glands) - INTEGUMENTARY Hx Dermatological Problems: No - MUSCULOSKELETAL/RHEUMATOLOGICAL Hx Musculoskeletal Disorders: No Hx Falls: No - GASTROINTESTINAL Hx Gastrointestinal Disorders: No Other/Comment: PEG tube feeding secondary to CA -Parotid Glands - GENITOURINARY/GYNECOLOGICAL Hx Genitourinary Disorders: No - PSYCHIATRIC Hx Psychophysiologic Disorder: No Hx Substance Use: No - SURGICAL HISTORY Hx Surgeries: Yes Hx Open Heart Surgery: Yes - ANESTHESIA Hx Anesthesia: Yes Hx Anesthesia Reactions: No Hx Malignant Hyperthermia: No Has any member of the family had a problem w/ anesthesia?: No Meds Allergies/Adverse Reactions: Allergies Allergy/AdvReac Type Severity Reaction Status Date / Time No Known Allergies Allergy Verified 05/30/18 20:53 - Medications Medications: Current Medications Albuterol/Ipratropium (Duoneb 3 Mg/0.5 Mg (3 Ml) Ud) 3 ml INH RQ6 [facility] Last Admin: 06/01/18 13:38 Dose: 3 ml Amlodipine Besylate (Norvasc) 10 mg GT DAILY [facility] Last Admin: 06/01/18 11:33 Dose: 10 mg Apixaban (Eliquis) 5 mg GT BID [facility] Last Admin: 06/01/18 11:39 Dose: Not Given Artificial Tears (Artificial Tears Refresh Celluvisc) 0 ml OU Q6H PRN Aspirin (Aspirin Chewable) 81 mg GT DAILY [facility] Last Admin: 06/01/18 11:33 Dose: 81 mg Docusate Sodium (Colace) 100 mg GT BID [facility] Last Admin: 06/01/18 11:33 Dose: 100 mg Famotidine (Pepcid) 20 mg GT Q12 [facility] Last Admin: 06/01/18 11:33 Dose: 20 mg Furosemide (Lasix) 20 mg PEG DAILY [facility] Last Admin: 06/01/18 11:34 Dose: 20 mg Moxifloxacin HCl (Avelox Iv 400mg/250ml Ns) 400 mg in 250 mls @ 167 mls/hr IVPB Q24H [facility]; Protocol Last Admin: 05/31/18 22:32 Dose: 167 mls/hr Cefepime HCl 1 gm/ Dextrose 50 mls @ 100 mls/hr IVPB Q12H [facility]; Protocol Last Admin: 06/01/18 13:43 Dose: 100 mls/hr Levothyroxine Sodium (Synthroid) 25 mcg GT DAILY@0630 [facility] Last Admin: 06/01/18 05:35 Dose: 25 mcg Metoprolol Tartrate (Lopressor) 25 mg GT Q12 [facility] Last Admin: 06/01/18 11:34 Dose: Not Given Ondansetron HCl (Zofran Tab) 4 mg GT Q6 PRN PRN Reason: Nausea/Vomiting Oseltamivir Phosphate (Tamiflu Cap) 75 mg PO BID [facility]; Protocol Stop: 06/06/18 00:26 Last Admin: 06/01/18 11:33 Dose: 75 mg Oxycodone HCl (Oxycodone Immediate Release Tab) 5 mg GT Q6 PRN PRN Reason: Pain, moderate (4-7) Last Admin: 05/31/18 23:30 Dose: 5 mg Rosuvastatin Calcium (Crestor) 5 mg PO HS [facility] Last Admin: 05/31/18 23:00 Dose: 5 mg Saliva Substitute (Mouth Kote 236 Ml) 0 ml MM TID [facility] Last Admin: 06/01/18 11:34 Dose: 1 spr Scopolamine (Transderm-Scop) 1 patch TD Q72 [facility] Sennosides (Senokot Tab) 8.6 mg PEG HS [facility] Last Admin: 05/31/18 23:02 Dose: 8.6 mg Results - Vital Signs Recent Vital Signs: Last Vital Signs Temp 97.6 F 06/01/18 08:36 Pulse 73 06/01/18 08:36 Resp 20 06/01/18 08:36 BP 116/59 L 06/01/18 11:34 Pulse Ox 100 06/01/18 08:36 - Labs Result Diagrams: 06/01/18 06:34 05/30/18 21:02 Labs: Laboratory Results - last 24 hr 05/31/18 05/31/18 05/31/18 11:25 15:34 21:04 WBC RBC Hgb Hct MCV MCH MCHC RDW Plt Count MPV Neut % (Auto) Lymph % (Auto) [place] % (Auto) Eos % (Auto) Baso % (Auto) Neut # (Auto) Lymph # (Auto) [place] # (Auto) Eos # (Auto) Baso # (Auto) Neutrophils % (Manual) Lymphocytes % (Manual) Monocytes % (Manual) Eosinophils % (Manual) Platelet Estimate Polychromasia Hypochromasia (manual) Anisocytosis (manual) POC Glucose (mg/dL) 171 H 134 H 148 H Hemoglobin A1c Iron TIBC % Saturation NT-Pro-B Natriuret Pep Folate Urine Color Urine Clarity Urine pH Ur Specific [place] Urine Protein Urine Glucose (UA) Urine Ketones Urine Blood Urine Nitrate Urine Bilirubin Urine Urobilinogen Ur Leukocyte Esterase Urine WBC (Auto) Urine RBC (Auto) Ur Squamous Epith Cells Amorphous Sediment Influenza Typ A,B (EIA) 05/31/18 06/01/18 06/01/18 22:16 06:34 06:34 WBC RBC Hgb Hct MCV MCH MCHC RDW Plt Count MPV Neut % (Auto) Lymph % (Auto) [place] % (Auto) Eos % (Auto) Baso % (Auto) Neut # (Auto) Lymph # (Auto) [place] # (Auto) Eos # (Auto) Baso # (Auto) Neutrophils % (Manual) Lymphocytes % (Manual) Monocytes % (Manual) Eosinophils % (Manual) Platelet Estimate Polychromasia Hypochromasia (manual) Anisocytosis (manual) POC Glucose (mg/dL) Hemoglobin A1c Iron < 10 L TIBC 300 % Saturation 8 L NT-Pro-B Natriuret Pep 1070 H Folate 9.8 Urine Color Urine Clarity Urine pH Ur Specific [place] Urine Protein Urine Glucose (UA) Urine Ketones Urine Blood Urine Nitrate Urine Bilirubin Urine Urobilinogen Ur Leukocyte Esterase Urine WBC (Auto) Urine RBC (Auto) Ur Squamous Epith Cells Amorphous Sediment Influenza Typ A,B (EIA) Pos for influenza b H 06/01/18 06/01/18 06/01/18 06:34 06:34 07:40 WBC 17.1 H D RBC 3.57 L Hgb 8.7 L D Hct 28.0 L MCV 78.6 L MCH 24.3 L MCHC 31.0 L RDW 18.3 H Plt Count 451 H D MPV 8.2 Neut % (Auto) 82.6 H Lymph % (Auto) 7.5 L [place] % (Auto) 7.0 Eos % (Auto) 2.5 Baso % (Auto) 0.4 Neut # (Auto) 14.1 H Lymph # (Auto) 1.3 [place] # (Auto) 1.2 H Eos # (Auto) 0.4 Baso # (Auto) 0.1 Neutrophils % (Manual) 83 H Lymphocytes % (Manual) 6 L Monocytes % (Manual) 8 Eosinophils % (Manual) 3 Platelet Estimate Slightly increased H Polychromasia Slight Hypochromasia (manual) Slight Anisocytosis (manual) Slight POC Glucose (mg/dL) 130 H Hemoglobin A1c 6.5 Iron TIBC % Saturation NT-Pro-B Natriuret Pep Folate Urine Color Urine Clarity Urine pH Ur Specific [place] Urine Protein Urine Glucose (UA) Urine Ketones Urine Blood Urine Nitrate Urine Bilirubin Urine Urobilinogen Ur Leukocyte Esterase Urine WBC (Auto) Urine RBC (Auto) Ur Squamous Epith Cells Amorphous Sediment Influenza Typ A,B (EIA) 06/01/18 13:31 WBC RBC Hgb Hct MCV MCH MCHC RDW Plt Count MPV Neut % (Auto) Lymph % (Auto) [place] % (Auto) Eos % (Auto) Baso % (Auto) Neut # (Auto) Lymph # (Auto) [place] # (Auto) Eos # (Auto) Baso # (Auto) Neutrophils % (Manual) Lymphocytes % (Manual) Monocytes % (Manual) Eosinophils % (Manual) Platelet Estimate Polychromasia Hypochromasia (manual) Anisocytosis (manual) POC Glucose (mg/dL) Hemoglobin A1c Iron TIBC % Saturation NT-Pro-B Natriuret Pep Folate Urine Color Yellow Urine Clarity Hazy Urine pH 7.0 Ur Specific [place] 1.019 Urine Protein Negative Urine Glucose (UA) Normal Urine Ketones Negative Urine Blood Negative Urine Nitrate Negative Urine Bilirubin Negative Urine Urobilinogen 4.0 H Ur Leukocyte Esterase Neg Urine WBC (Auto) 1 Urine RBC (Auto) 4 H Ur Squamous Epith Cells 1 Amorphous Sediment Few H Influenza Typ A,B (EIA)
[2018-06-01] MEDS: oxyCODONE 5 mg Immediate Release Tab GT PRN (14:32)
--- NOTE | 2018-06-01 21:44 | CP.PCM.PN ---
Subjective - Date & Time of Evaluation Date of Evaluation: 06/01/18 Time of Evaluation: 10:20 - Subjective Subjective: Patient seen and evaluated No cardiac events noted Continue medical management Objective - Vital Signs/Intake and Output Vital Signs (last 24 hours): Temp Pulse Resp BP Pulse Ox 97.6 F 77 12 106/55 L 100 06/01/18 15:41 06/01/18 15:41 06/01/18 20:29 06/01/18 15:41 06/01/18 15:41 - Medications Medications: Current Medications Albuterol/Ipratropium (Duoneb 3 Mg/0.5 Mg (3 Ml) Ud) 3 ml INH RQ6 [facility] Last Admin: 06/01/18 20:28 Dose: 3 ml Amlodipine Besylate (Norvasc) 10 mg GT DAILY [facility] Last Admin: 06/01/18 11:33 Dose: 10 mg Apixaban (Eliquis) 5 mg GT BID [facility] Last Admin: 06/01/18 11:39 Dose: Not Given Artificial Tears (Artificial Tears Refresh Celluvisc) 0 ml OU Q6H PRN Aspirin (Aspirin Chewable) 81 mg GT DAILY [facility] Last Admin: 06/01/18 11:33 Dose: 81 mg Docusate Sodium (Colace) 100 mg GT BID [facility] Last Admin: 06/01/18 18:35 Dose: 100 mg Famotidine (Pepcid) 20 mg GT Q12 [facility] Last Admin: 06/01/18 11:33 Dose: 20 mg Furosemide (Lasix) 20 mg PEG DAILY [facility] Last Admin: 06/01/18 11:34 Dose: 20 mg Moxifloxacin HCl (Avelox Iv 400mg/250ml Ns) 400 mg in 250 mls @ 167 mls/hr IVPB Q24H [facility]; Protocol Last Admin: 05/31/18 22:32 Dose: 167 mls/hr Cefepime HCl 1 gm/ Dextrose 50 mls @ 100 mls/hr IVPB Q12H [facility]; Protocol Last Admin: 06/01/18 13:43 Dose: 100 mls/hr Levothyroxine Sodium (Synthroid) 25 mcg GT DAILY@0630 [facility] Last Admin: 06/01/18 05:35 Dose: 25 mcg Metoprolol Tartrate (Lopressor) 25 mg GT Q12 [facility] Last Admin: 06/01/18 11:34 Dose: Not Given Ondansetron HCl (Zofran Tab) 4 mg GT Q6 PRN PRN Reason: Nausea/Vomiting Oseltamivir Phosphate (Tamiflu Cap) 75 mg PO BID [facility]; Protocol Stop: 06/06/18 00:26 Last Admin: 06/01/18 18:35 Dose: 75 mg Oxycodone HCl (Oxycodone Immediate Release Tab) 5 mg GT Q6 PRN PRN Reason: Pain, moderate (4-7) Last Admin: 06/01/18 14:32 Dose: 5 mg Rosuvastatin Calcium (Crestor) 5 mg PO HS [facility] Last Admin: 05/31/18 23:00 Dose: 5 mg Saliva Substitute (Mouth Kote 236 Ml) 0 ml MM TID [facility] Last Admin: 06/01/18 18:35 Dose: 1 spr Scopolamine (Transderm-Scop) 1 patch TD Q72 [facility] Sennosides (Senokot Tab) 8.6 mg PEG HS [facility] Last Admin: 05/31/18 23:02 Dose: 8.6 mg - Labs Labs: 06/01/18 06:34 05/30/18 21:02 PT 18.9 SECONDS (9.7-12.2) H 05/30/18 21:02 INR 1.7 05/30/18 21:02 APTT 36 SECONDS (21-34) H 05/30/18 21:02
[2018-06-01] MEDS: Moxifloxacin IV 400mg/250ml NS 400 MG/250 ML BAG IVPB SCH (22:00)
[2018-06-02] MEDS: Albuterol-Ipratrop 3 mg / 0.5 (3 ml) UD INH SCH ×4 (01:12→19:53)
[2018-06-02] MEDS ORDERED: Acetaminophen 650mg/20.3ml solution UD PO STA (02:24)
--- NOTE | 2018-06-02 03:23 | PN ---
DATE: 06/01/2018 SUBJECTIVE: The patient was seen and examined at the bedside, 06/01/2018, looking comfortable, has flu, getting antibiotics. No headache, no dizziness. No chest pain, no palpitation. No hematuria, no hematochezia. PHYSICAL EXAMINATION: VITAL SIGNS: Temperature 97.6, pulse 73, respiratory rate 20, blood pressure 116/59, and pulse oximetry 100. HEENT: Head normocephalic and atraumatic. Eyes PERRLA. Extraocular movements intact. Conjunctivae clear. Nose patent. Mucous membrane moist. NECK: Supple. No carotid bruits, JVD, or thyromegaly. CHEST: Bilaterally symmetrical. HEART: S1, S2 positive. LUNGS: Clear to auscultation. ABDOMEN: Soft. Positive bowel sounds. No organomegaly. EXTREMITIES: No edema, no cyanosis. NEUROLOGIC: The patient is awake, alert. Moving all four extremities. No focal deficits. MEDICATIONS: DuoNeb, Norvasc, Eliquis, artificial tears, aspirin, Colace, Pepcid, Lasix, Avelox, cefepime, levothyroxine, metoprolol, Zofran, Tamiflu, oxycodone, Crestor, saliva substitution, scopolamine. LABORATORY DATA: White blood 17.1, hemoglobin 8.7, hematocrit 28, platelets 451. Sodium 143, potassium 5.2, BUN 42, creatinine 0.8, glucose 258. ASSESSMENT AND PLAN: Ms. Ghada Becerra is a 67-year-old female with leukocytosis, anemia, thrombocytosis, dehydration, diabetes mellitus, had carcinoma of the parotid gland, carotid artery occlusion, stenosis, fever, leukocytosis, pneumonia. Waiting for the culture. Continue intravenous antibiotics. Seen by Infectious Disease, Dr. Abraham. Seen by the laundry housekeeper, Dr. Jacob carrasco and Pulmonology, Dr. Chidi Welch. Chest CT done, no large central or segmental pulmonary embolism identified; innumerable, scattered, irregular spiculated lung nodules consistent with metastatic disease; scattered tree-in-bud like nodules and ground-glass infiltrates, superimposed rib fraction is not excluded. ASSESSMENT: Bilateral hilar adenopathy, history of smoking, hypertension, right hemiparesis, right eye droop, hypothyroidism, parotid gland cancer, history of open heart surgery. PLAN: Continue present treatment. Seen by Dr. Katiuska Olivares, also. A length of time discussion done with him. The patient completed a couple of times a course of antibiotics. Discussion done with Dr. Olivares, oncologist that maybe the patient need a lung biopsy. The patient is getting supplemental oxygen. The patient had treatment of parotid gland cancer in [facility] in [place]. Continue aggressive supportive care. GI, deep vein thrombosis prophylaxis. Repeat labs. We will follow up. Faviola Catherine MD
[2018-06-02] MEDS: Levothyroxine 25 MCG TAB GT SCH (05:35)
[2018-06-02 07:37] LABS: BASO # 0.1 K/uL (0.0-0.2); BASO % 0.7 % (0.0-2.0); EOS # 0.5 K/uL (0.0-0.7); EOS % 3.5 % (0.0-4.0); HEMOGLOBIN 9.2 g/dL (11.0-16.0); LYMPH # 1.4 K/uL (1.0-4.3); LYMPH % 9.3 % (20.0-40.0); MEAN CELL VOLUME 77.3 fL (81.0-99.0); MEAN CORPUSCULAR HEMOGLOBIN 25.1 pg (27.0-31.0); MEAN CORPUSCULAR HGB CONC 32.5 g/dL (33.0-37.0); MONO # 1.3 K/uL (0.0-0.8); MONO % 8.3 % (0.0-10.0); NEUT # 12.2 K/uL (1.8-7.0); NEUT % 78.2 % (50.0-75.0); NRBC % 0.1 % (0.0-2.0); PLATELET COUNT 455 K/uL (130-400); RBC 3.65 Mil/uL (3.80-5.20); RED CELL DISTRIBUTION WIDTH 18.4 % (11.5-14.5); WHITE BLOOD COUNT 15.6 K/uL (4.8-10.8)
[2018-06-02 08:05] LABS: BLOOD UREA NITROGEN 31 mg/dL (7-17); CALCIUM 9.8 mg/dl (8.6-10.4); GFR NON-AFRICAN AMERICAN > 60; IRON 33 ug/dL (37-170)
[2018-06-02 08:14] LABS: % IRON SATURATION 10 (20-55); TOTAL IRON BINDING CAPACITY 324 ug/dL (250-450)
[2018-06-02 09:04] LABS: BANDS 1 % (0-2); EOSINOPHIL 2 % (0-4); LYMPHOCYTE 12 % (20-40); MONOCYTE 7 % (0-10); NEUTROPHIL 78 % (50-75); PLATELET ESTIMATE SLIGHTLY INCREASED (NORMAL); TOTAL CELLS COUNTED 100
[2018-06-02 09:05] LABS: ANISOCYTOSIS SLIGHT; HYPOCHROMIC SLIGHT; MICROCYTOSIS SLIGHT; POLYCHROMIC SLIGHT
[2018-06-02 09:06] LABS: FOLATE 10.9 ng/mL
[2018-06-02] MEDS ORDERED: Enoxaparin 30 mg Syringe SC SCH (10:00)
[2018-06-02] MEDS: Acetaminophen 650mg/20.3ml solution UD PO PRN ×2 (12:56→21:01)
--- NOTE | 2018-06-02 14:33 | CP.PCM.PN ---
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 Patient placed on high flow oxygen for hypoxemia. CAT scan of the chest showed no pulmonary embolism but multiple lung nodules consistent with metastatic disease and possible infection. pt has biopsy-proven right iliac metastasis. Objective - Vital Signs/Intake and Output Vital Signs (last 24 hours): Temp Pulse Resp BP Pulse Ox 98.1 F 73 20 119/64 97 06/02/18 07:00 06/02/18 07:00 06/02/18 07:25 06/02/18 10:49 06/02/18 07:00 Intake and Output: 06/02/18 06/02/18 06:59 18:59 Intake Total 1300 Output Total 300 Balance 1000 - Medications Medications: Current Medications Acetaminophen (Tylenol 650mg/20.3ml Solution Ud) 650 mg PO Q6H PRN PRN Reason: Pain, Mild (1-3) Last Admin: 06/02/18 12:56 Dose: 650 mg Albuterol/Ipratropium (Duoneb 3 Mg/0.5 Mg (3 Ml) Ud) 3 ml INH RQ6 [facility] Last Admin: 06/02/18 13:31 Dose: 3 ml Amlodipine Besylate (Norvasc) 10 mg GT DAILY [facility] Last Admin: 06/02/18 10:49 Dose: 10 mg Apixaban (Eliquis) 5 mg GT BID [facility] Last Admin: 06/01/18 11:39 Dose: Not Given Artificial Tears (Artificial Tears Refresh Celluvisc) 0 ml OU Q6H PRN Aspirin (Aspirin Chewable) 81 mg GT DAILY [facility] Last Admin: 06/02/18 10:48 Dose: 81 mg Docusate Sodium (Colace) 100 mg GT BID [facility] Last Admin: 06/02/18 10:48 Dose: 100 mg Famotidine (Pepcid) 20 mg GT Q12 [facility] Last Admin: 06/02/18 10:48 Dose: 20 mg Furosemide (Lasix) 20 mg PEG DAILY [facility] Last Admin: 06/02/18 10:48 Dose: 20 mg Moxifloxacin HCl (Avelox Iv 400mg/250ml Ns) 400 mg in 250 mls @ 167 mls/hr IVPB Q24H [facility]; Protocol Last Admin: 06/01/18 22:00 Dose: 167 mls/hr Cefepime HCl 1 gm/ Dextrose 50 mls @ 100 mls/hr IVPB Q12H [facility]; Protocol Last Admin: 06/02/18 12:56 Dose: 100 mls/hr Levothyroxine Sodium (Synthroid) 25 mcg GT DAILY@0630 [facility] Last Admin: 06/02/18 05:35 Dose: 25 mcg Metoprolol Tartrate (Lopressor) 25 mg GT Q12 [facility] Last Admin: 06/02/18 10:49 Dose: Not Given Ondansetron HCl (Zofran Tab) 4 mg GT Q6 PRN PRN Reason: Nausea/Vomiting Oseltamivir Phosphate (Tamiflu Cap) 75 mg PO BID [facility]; Protocol Stop: 06/06/18 00:26 Last Admin: 06/02/18 10:48 Dose: 75 mg Oxycodone HCl (Oxycodone Immediate Release Tab) 5 mg GT Q6 PRN PRN Reason: Pain, moderate (4-7) Last Admin: 06/01/18 14:32 Dose: 5 mg Rosuvastatin Calcium (Crestor) 5 mg PO HS [facility] Last Admin: 06/01/18 22:02 Dose: 5 mg Saliva Substitute (Mouth Kote 236 Ml) 0 ml MM TID [facility] Last Admin: 06/02/18 10:49 Dose: 1 spr Scopolamine (Transderm-Scop) 1 patch TD Q72 [facility] Sennosides (Senokot Tab) 8.6 mg PEG HS [facility] Last Admin: 06/01/18 22:02 Dose: 8.6 mg - Labs Labs: 06/02/18 07:30 06/02/18 07:30 PT 18.9 SECONDS (9.7-12.2) H 05/30/18 21:02 INR 1.7 05/30/18 21:02 APTT 36 SECONDS (21-34) H 05/30/18 21:02 - Head Exam Head Exam: ATRAUMATIC, NORMOCEPHALIC - ENT Exam ENT Exam: Mucous Membranes Moist - Respiratory Exam Respiratory Exam: Rales, Wheezes - Cardiovascular Exam Cardiovascular Exam: REGULAR RHYTHM - GI/Abdominal Exam GI & Abdominal Exam: Soft, Normal Bowel Sounds - Extremities Exam Extremities Exam: Normal Inspection - Neurological Exam Neurological Exam: Alert, Oriented x3 Assessment and Plan (1) Pneumonia Assessment & Plan: shortness of breath, hypoxemia and productive cough IV antibiotics Nebulizer treatment Continue high flow oxygen Follow-up culture and sensitivity Status: Acute (2) Flu Status: Acute (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
--- NOTE | 2018-06-02 18:15 | CP.PCM.PN ---
Subjective - Date & Time of Evaluation Date of Evaluation: 06/02/18 Time of Evaluation: 08:00 - Subjective Subjective: mdro SPUTUM IV RX IN PROGRESS GENTA ADDED MAY BE CONTAMINANT ? Objective - Vital Signs/Intake and Output Vital Signs (last 24 hours): Temp Pulse Resp BP Pulse Ox 97.4 F L 74 10 L 101/58 L 95 06/02/18 15:00 06/02/18 15:00 06/02/18 16:15 06/02/18 15:00 06/02/18 15:00 Intake and Output: 06/02/18 06/02/18 06:59 18:59 Intake Total 1300 Output Total 300 Balance 1000 - Medications Medications: Current Medications Acetaminophen (Tylenol 650mg/20.3ml Solution Ud) 650 mg PO Q6H PRN PRN Reason: Pain, Mild (1-3) Last Admin: 06/02/18 12:56 Dose: 650 mg Albuterol/Ipratropium (Duoneb 3 Mg/0.5 Mg (3 Ml) Ud) 3 ml INH RQ6 [facility] Last Admin: 06/02/18 13:31 Dose: 3 ml Amlodipine Besylate (Norvasc) 10 mg GT DAILY [facility] Last Admin: 06/02/18 10:49 Dose: 10 mg Apixaban (Eliquis) 5 mg GT BID [facility] Last Admin: 06/02/18 17:37 Dose: 5 mg Artificial Tears (Artificial Tears Refresh Celluvisc) 0 ml OU Q6H PRN Aspirin (Aspirin Chewable) 81 mg GT DAILY [facility] Last Admin: 06/02/18 10:48 Dose: 81 mg Docusate Sodium (Colace) 100 mg GT BID [facility] Last Admin: 06/02/18 17:37 Dose: 100 mg Famotidine (Pepcid) 20 mg GT Q12 [facility] Last Admin: 06/02/18 10:48 Dose: 20 mg Furosemide (Lasix) 20 mg PEG DAILY [facility] Last Admin: 06/02/18 10:48 Dose: 20 mg Moxifloxacin HCl (Avelox Iv 400mg/250ml Ns) 400 mg in 250 mls @ 167 mls/hr IVPB Q24H [facility]; Protocol Last Admin: 06/01/18 22:00 Dose: 167 mls/hr Cefepime HCl 1 gm/ Dextrose 50 mls @ 100 mls/hr IVPB Q12H [facility]; Protocol Last Admin: 06/02/18 12:56 Dose: 100 mls/hr Gentamicin Sulfate 60 mg/ (Sodium Chloride) 101.5 mls @ 100 mls/hr IVPB Q12H [facility]; Protocol Last Admin: 06/02/18 17:37 Dose: 100 mls/hr Levothyroxine Sodium (Synthroid) 25 mcg GT DAILY@0630 [facility] Last Admin: 06/02/18 05:35 Dose: 25 mcg Metoprolol Tartrate (Lopressor) 25 mg GT Q12 [facility] Last Admin: 06/02/18 10:49 Dose: Not Given Ondansetron HCl (Zofran Tab) 4 mg GT Q6 PRN PRN Reason: Nausea/Vomiting Oseltamivir Phosphate (Tamiflu Cap) 75 mg PO BID [facility]; Protocol Stop: 06/06/18 00:26 Last Admin: 06/02/18 17:37 Dose: 75 mg Oxycodone HCl (Oxycodone Immediate Release Tab) 5 mg GT Q6 PRN PRN Reason: Pain, moderate (4-7) Last Admin: 06/01/18 14:32 Dose: 5 mg Rosuvastatin Calcium (Crestor) 5 mg PO HS [facility] Last Admin: 06/01/18 22:02 Dose: 5 mg Saliva Substitute (Mouth Kote 236 Ml) 0 ml MM TID [facility] Last Admin: 06/02/18 17:38 Dose: 1 spr Scopolamine (Transderm-Scop) 1 patch TD Q72 [facility] Sennosides (Senokot Tab) 8.6 mg PEG HS [facility] Last Admin: 06/01/18 22:02 Dose: 8.6 mg - Labs Labs: 06/02/18 07:30 06/02/18 07:30 PT 18.9 SECONDS (9.7-12.2) H 05/30/18 21:02 INR 1.7 05/30/18 21:02 APTT 36 SECONDS (21-34) H 05/30/18 21:02 - Constitutional Appears: Non-toxic, Chronically Ill - Head Exam Head Exam: NORMOCEPHALIC - Eye Exam Eye Exam: absent: Scleral icterus - ENT Exam ENT Exam: Mucous Membranes Dry - Neck Exam Neck Exam: absent: Lymphadenopathy - Respiratory Exam Respiratory Exam: Decreased Breath Sounds - Cardiovascular Exam Cardiovascular Exam: REGULAR RHYTHM, +S1, +S2 - GI/Abdominal Exam GI & Abdominal Exam: Distended, Soft. absent: Tenderness - Rectal Exam Rectal Exam: Deferred - Exam Exam: NORMAL INSPECTION - Extremities Exam Extremities Exam: absent: Pedal Edema - Back Exam Back Exam: absent: CVA tenderness (L), CVA tenderness (R) - Neurological Exam Neurological Exam: Alert Assessment and Plan (1) Carcinoma of parotid gland Status: Acute (2) Carotid artery occlusion and stenosis Status: Acute (3) Fever Status: Acute (4) Leukocytosis Status: Acute (5) Pneumonia Status: Acute - Assessment and Plan (Free Text) Assessment: mdro SPUTUM IV RX IN PROGRESS GENTA ADDED MAY BE CONTAMINANT ?
[2018-06-02 19:31] LABS: N MENINGITIS ACY/W135 NEGATIVE (NEGATIVE); N MENINGITIS B/ECOLI K1 NEGATIVE (NEGATIVE); STREP PNEUMONIAE NEGATIVE (NEGATIVE); STREPTOCOCCUS B NEGATIVE (NEGATIVE)
[2018-06-02] MEDS: Moxifloxacin IV 400mg/250ml NS 400 MG/250 ML BAG IVPB SCH (20:24)
[2018-06-03] MEDS: Albuterol-Ipratrop 3 mg / 0.5 (3 ml) UD INH SCH ×4 (02:30→19:48)
[2018-06-03] MEDS: Acetaminophen 650mg/20.3ml solution UD PO PRN (03:36)
[2018-06-03] MEDS: Levothyroxine 25 MCG TAB GT SCH (05:59)
--- NOTE | 2018-06-03 06:41 | PN ---
DATE: 06/02/2018 SUBJECTIVE: The patient is a 57-year-old female. The patient was seen and examined at the bedside on 06/02/2018. No change in the sputum. No fever. No chills. The patient is a very poor historian. Night was unremarkable. PHYSICAL EXAMINATION: VITAL SIGNS: Temperature 97.4, pulse 74, respiratory rate 10, blood pressure 101/58, pulse oximetry 98. HEENT: Head, normocephalic and atraumatic. Eyes, PERRLA. Extraocular muscles intact. Conjunctivae clear. Nose patent. Mucous membranes moist. NECK: Supple. No carotid bruits. No JVD or thyromegaly. CHEST: Bilaterally symmetrical. HEART: S1 and S2 positive. LUNGS: Clear to auscultation. ABDOMEN: Soft. Positive bowel sounds. No organomegaly. EXTREMITIES: No edema, no cyanosis. NEUROLOGIC: The patient is awake, alert. Moving all four extremities. No focal deficits. MEDICATIONS: Tylenol, DuoNeb, Norvasc, Eliquis, Artificial Tears, aspirin, Colace, Pepcid, Lasix, Avelox, cefepime, gentamicin, levothyroxine, metoprolol, Zofran, Tamiflu, oxycodone, Crestor, and Senokot. LABORATORY DATA: White blood cells 15.6, hemoglobin 9.2, hematocrit 28.2, and platelets 455. Sodium 140, potassium 4.9, BUN 31, creatinine 0.5, and glucose 118. ASSESSMENT AND PLAN: The patient is a 57-year-old female with leukocytosis, anemia, thrombocytosis, renal insufficiency, hyperglycemia. Has carcinoma of the parotid gland, fever, leukocytosis, and pneumonia. Having multi-drug resistant organisms in the sputum. Intravenous antibiotics in progress and gentamicin added. Mainly contamination as per Dr. Mahesh Abraham. 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 The patient has a history of some mandibular gland cancer, status post surgery and radiation therapy 30 years ago, poorly differentiated parotid gland cancer, status post parotidectomy on 06/12/2017 and adjuvant chemotherapy and radiation therapy and later on wound debridement. coronary artery disease, hypertension, hypercholesterolemia, mitral valve replacement, atrial fibrillation. Shortness of breath is little bit better. Has congestive heart failure. The patient is placed on high-flow oxygen with hypoxemia. CAT scan of the chest shows no pulmonary embolism, but multiple lung nodules consistent with metastatic disease and possible infection. The patient deep venous thrombosis, pneumonia. Continue present treatment. Follow up cultures and sensitivities. Repeat labs. We will follow up. Faviola Catherine MD [facility]TD[facility]
--- NOTE | 2018-06-03 06:42 | PN ---
DATE: 06/02/2018 SUBJECTIVE: The events, notes, labs, etc noted. The patient is clinically a little better, but still having shortness of breath. Her hemoglobin is 9.2. White cell count is coming down, and it is 15.6 today. Her platelet counts are also coming down with 445,000 value today. Her chemistry is stable with BUN of 31 and creatinine of 0.5. The review of system is the same and remained unchanged. ASSESSMENT AND PLAN: Ghada is a 67-year-old female with extensive pulmonary nodules, possible pneumonia, and bilateral hilar adenopathy. The patient has multiple other morbidities of coronary artery disease, hypertension, atrial fibrillation, history of cerebrovascular accident, history of residual right-sided weakness, and history of parotid gland cancer. The patient is currently being treated aggressively with intravenous antibiotics and breathing treatment. The signal worker helper, Dr. Bashir Patterson has already seen the patient. In this patient, the differential diagnoses include infectious versus inflammatory versus neoplastic metastatic disease. Once the patient's infection is controlled, we have to do the repeat CT chest to assess the lung findings mainly pulmonary nodule and hilar adenopathy. The patient may require bronchoscopy, bronchoalveolar lavage, cytology and biopsy to assess the histology if this finding could be secondary to the cancer. We will follow this patient up and will decide as to what can be the further course in the treatment based on her stability. If she is clinically stable and gets better at which point, we will have a meeting with the patient's family and Dr. Catherine to decide further course of treatment. This was discussed with all involved. We will follow the patient. Katiuska Olivares MD
[2018-06-03 07:52] LABS: BASO # 0.1 K/uL (0.0-0.2); BASO % 0.4 % (0.0-2.0); EOS # 0.2 K/uL (0.0-0.7); EOS % 0.8 % (0.0-4.0); HEMOGLOBIN 9.3 g/dL (11.0-16.0); LYMPH # 0.8 K/uL (1.0-4.3); LYMPH % 3.2 % (20.0-40.0); MEAN CELL VOLUME 77.7 fL (81.0-99.0); MEAN CORPUSCULAR HEMOGLOBIN 24.7 pg (27.0-31.0); MEAN CORPUSCULAR HGB CONC 31.7 g/dL (33.0-37.0); MEAN PLATELET VOLUME 8.6 fL (7.2-11.7); MONO # 0.9 K/uL (0.0-0.8); MONO % 3.8 % (0.0-10.0); NEUT # 22.7 K/uL (1.8-7.0); NEUT % 91.8 % (50.0-75.0); PLATELET COUNT 389 K/uL (130-400); RBC 3.79 Mil/uL (3.80-5.20); RED CELL DISTRIBUTION WIDTH 19.1 % (11.5-14.5); WHITE BLOOD COUNT 24.7 K/uL (4.8-10.8)
[2018-06-03 09:09] LABS: BANDS 2 % (0-2); LYMPHOCYTE 7 % (20-40); MONOCYTE 3 % (0-10); NEUTROPHIL 88 % (50-75); PLATELET ESTIMATE NORMAL (NORMAL); TOTAL CELLS COUNTED 100
[2018-06-03 09:10] LABS: ANISOCYTOSIS SLIGHT; HYPOCHROMIC SLIGHT; POIKILOCYTOSIS SLIGHT; TARGET CELLS SLIGHT
[2018-06-03] MEDS: oxyCODONE 5 mg Immediate Release Tab GT PRN (11:40)
--- NOTE | 2018-06-03 15:48 | CP.PCM.PCO ---
Physician Communication Note - Physician Communication Note Physician Communication Note: pt needs 10 days of antibiotics as per Dr. baer
--- NOTE | 2018-06-03 18:12 | CP.PCM.PN ---
Subjective - Date & Time of Evaluation Date of Evaluation: 06/03/18 Time of Evaluation: 10:20 - Subjective Subjective: patient seen and examined Still having cough and congestion Complaining off and lower right quadrant pain Afebrile Objective - Vital Signs/Intake and Output Vital Signs (last 24 hours): Temp Pulse Resp BP Pulse Ox 97.4 F L 69 18 90/52 L 97 06/03/18 15:03 06/03/18 15:03 06/03/18 15:03 06/03/18 15:03 06/03/18 15:03 Intake and Output: 06/03/18 06/03/18 06:59 18:59 Intake Total 1330 650 Output Total 250 251 Balance 1080 399 - Medications Medications: Current Medications Acetaminophen (Tylenol 650mg/20.3ml Solution Ud) 650 mg PO Q6H PRN PRN Reason: Pain, Mild (1-3) Last Admin: 06/03/18 03:36 Dose: 650 mg Albuterol/Ipratropium (Duoneb 3 Mg/0.5 Mg (3 Ml) Ud) 3 ml INH RQ6 [facility] Last Admin: 06/03/18 13:31 Dose: 3 ml Amlodipine Besylate (Norvasc) 10 mg GT DAILY [facility] [place] Last Admin: 06/03/18 11:04 Dose: 10 mg Apixaban (Eliquis) 5 mg GT BID [facility] Last Admin: 06/03/18 11:05 Dose: 5 mg Artificial Tears (Artificial Tears Refresh Celluvisc) 0 ml OU Q6H PRN Aspirin (Aspirin Chewable) 81 mg GT DAILY [facility] [place] Last Admin: 06/03/18 11:05 Dose: 81 mg Docusate Sodium (Colace) 100 mg GT BID [facility] [place] Last Admin: 06/03/18 11:07 Dose: Not Given Famotidine (Pepcid) 20 mg GT Q12 [facility] Last Admin: 06/03/18 11:04 Dose: 20 mg Furosemide (Lasix) 20 mg PEG DAILY [facility] Last Admin: 06/03/18 11:05 Dose: 20 mg Moxifloxacin HCl (Avelox Iv 400mg/250ml Ns) 400 mg in 250 mls @ 167 mls/hr IVPB Q24H [facility]; Protocol Last Admin: 06/02/18 20:24 Dose: 167 mls/hr Cefepime HCl 1 gm/ Dextrose 50 mls @ 100 mls/hr IVPB Q12H [facility] [place]; Protocol Last Admin: 06/03/18 13:14 Dose: 100 mls/hr Gentamicin Sulfate 60 mg/ (Sodium Chloride) 101.5 mls @ 100 mls/hr IVPB Q12H [facility]; Protocol Last Admin: 06/03/18 05:59 Dose: 100 mls/hr Levothyroxine Sodium (Synthroid) 25 mcg GT DAILY@0630 [facility] Last Admin: 06/03/18 05:59 Dose: 25 mcg Metoprolol Tartrate (Lopressor) 25 mg GT Q12 [facility] [place] Last Admin: 06/03/18 11:04 Dose: 25 mg Ondansetron HCl (Zofran Tab) 4 mg GT Q6 PRN PRN Reason: Nausea/Vomiting Oseltamivir Phosphate (Tamiflu Cap) 75 mg PO BID [facility] [place]; Protocol Stop: 06/06/18 00:26 Last Admin: 06/03/18 11:03 Dose: 75 mg Oxycodone HCl (Oxycodone Immediate Release Tab) 5 mg GT Q6 PRN PRN Reason: Pain, moderate (4-7) Last Admin: 06/03/18 11:40 Dose: 5 mg Rosuvastatin Calcium (Crestor) 5 mg PO HS [facility] [place] Last Admin: 06/02/18 21:03 Dose: 5 mg Saliva Substitute (Mouth Kote 236 Ml) 0 ml MM TID [facility] [place] Last Admin: 06/03/18 13:14 Dose: 1 spr Scopolamine (Transderm-Scop) 1 patch TD Q72 [facility] [place] Sennosides (Senokot Tab) 8.6 mg PEG HS [facility] Last Admin: 06/02/18 21:03 Dose: 8.6 mg - Labs Labs: 06/03/18 06:45 06/02/18 07:30 PT 18.9 SECONDS (9.7-12.2) H 05/30/18 21:02 INR 1.7 05/30/18 21:02 APTT 36 SECONDS (21-34) H 05/30/18 21:02 - Head Exam Head Exam: ATRAUMATIC, NORMOCEPHALIC - ENT Exam ENT Exam: Mucous Membranes Moist - Neck Exam Neck Exam: Normal Inspection - Respiratory Exam Respiratory Exam: Rales, Rhonchi, Wheezes - Cardiovascular Exam Cardiovascular Exam: REGULAR RHYTHM - GI/Abdominal Exam GI & Abdominal Exam: Soft, Normal Bowel Sounds Assessment and Plan (1) Pneumonia Assessment & Plan: Continue IV antibiotics as per infectious disease, sputum is positive for Pseudomonas Continue nebulizer treatment Followup culture and sensitivity Followup chest x-ray Status: Acute (2) Flu Status: Acute (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
--- NOTE | 2018-06-03 18:48 | CP.PCM.PN ---
Subjective - Date & Time of Evaluation Date of Evaluation: 06/03/18 Time of Evaluation: 09:00 - Subjective Subjective: weak bedridden mdro sputum Objective - Vital Signs/Intake and Output Vital Signs (last 24 hours): Temp Pulse Resp BP Pulse Ox 97.4 F L 69 18 90/52 L 97 06/03/18 15:03 06/03/18 15:03 06/03/18 15:03 06/03/18 15:03 06/03/18 15:03 Intake and Output: 06/03/18 06/03/18 06:59 18:59 Intake Total 1330 650 Output Total 250 251 Balance 1080 399 - Medications Medications: Current Medications Acetaminophen (Tylenol 650mg/20.3ml Solution Ud) 650 mg PO Q6H PRN PRN Reason: Pain, Mild (1-3) Last Admin: 06/03/18 03:36 Dose: 650 mg Albuterol/Ipratropium (Duoneb 3 Mg/0.5 Mg (3 Ml) Ud) 3 ml INH RQ6 [facility] Last Admin: 06/03/18 13:31 Dose: 3 ml Amlodipine Besylate (Norvasc) 10 mg GT DAILY [facility] Last Admin: 06/03/18 11:04 Dose: 10 mg Apixaban (Eliquis) 5 mg GT BID [facility] Last Admin: 06/03/18 11:05 Dose: 5 mg Artificial Tears (Artificial Tears Refresh Celluvisc) 0 ml OU Q6H PRN Aspirin (Aspirin Chewable) 81 mg GT DAILY [facility] Last Admin: 06/03/18 11:05 Dose: 81 mg Docusate Sodium (Colace) 100 mg GT BID [facility] Last Admin: 06/03/18 11:07 Dose: Not Given Famotidine (Pepcid) 20 mg GT Q12 [facility] Last Admin: 06/03/18 11:04 Dose: 20 mg Furosemide (Lasix) 20 mg PEG DAILY [facility] Last Admin: 06/03/18 11:05 Dose: 20 mg Moxifloxacin HCl (Avelox Iv 400mg/250ml Ns) 400 mg in 250 mls @ 167 mls/hr IVPB Q24H [facility]; Protocol Last Admin: 06/02/18 20:24 Dose: 167 mls/hr Cefepime HCl 1 gm/ Dextrose 50 mls @ 100 mls/hr IVPB Q12H [facility]; Protocol Last Admin: 06/03/18 13:14 Dose: 100 mls/hr Gentamicin Sulfate 60 mg/ (Sodium Chloride) 101.5 mls @ 100 mls/hr IVPB Q12H [facility]; Protocol Last Admin: 06/03/18 05:59 Dose: 100 mls/hr Levothyroxine Sodium (Synthroid) 25 mcg GT DAILY@0630 [facility] Last Admin: 06/03/18 05:59 Dose: 25 mcg Metoprolol Tartrate (Lopressor) 25 mg GT Q12 [facility] Last Admin: 06/03/18 11:04 Dose: 25 mg Ondansetron HCl (Zofran Tab) 4 mg GT Q6 PRN PRN Reason: Nausea/Vomiting Oseltamivir Phosphate (Tamiflu Cap) 75 mg PO BID [facility]; Protocol Stop: 06/06/18 00:26 Last Admin: 06/03/18 11:03 Dose: 75 mg Oxycodone HCl (Oxycodone Immediate Release Tab) 5 mg GT Q6 PRN PRN Reason: Pain, moderate (4-7) Last Admin: 06/03/18 11:40 Dose: 5 mg Rosuvastatin Calcium (Crestor) 5 mg PO HS [facility] Last Admin: 06/02/18 21:03 Dose: 5 mg Saliva Substitute (Mouth Kote 236 Ml) 0 ml MM TID [facility] Last Admin: 06/03/18 13:14 Dose: 1 spr Scopolamine (Transderm-Scop) 1 patch TD Q72 [facility] Sennosides (Senokot Tab) 8.6 mg PEG HS [facility] Last Admin: 06/02/18 21:03 Dose: 8.6 mg - Labs Labs: 06/03/18 06:45 06/02/18 07:30 PT 18.9 SECONDS (9.7-12.2) H 05/30/18 21:02 INR 1.7 05/30/18 21:02 APTT 36 SECONDS (21-34) H 05/30/18 21:02 - Constitutional Appears: Non-toxic, Older Than Stated Age, Cachectic, Chronically Ill - Head Exam Head Exam: NORMOCEPHALIC - Eye Exam Eye Exam: absent: Scleral icterus - ENT Exam ENT Exam: Mucous Membranes Dry - Neck Exam Neck Exam: absent: Lymphadenopathy - Respiratory Exam Respiratory Exam: Decreased Breath Sounds - Cardiovascular Exam Cardiovascular Exam: REGULAR RHYTHM - GI/Abdominal Exam GI & Abdominal Exam: Distended, Soft - Rectal Exam Rectal Exam: Deferred - Exam Exam: NORMAL INSPECTION - Extremities Exam Extremities Exam: absent: Pedal Edema - Back Exam Back Exam: absent: CVA tenderness (L), CVA tenderness (R) - Neurological Exam Neurological Exam: Alert, Awake, CN II-XII Intact Assessment and Plan (1) Carcinoma of parotid gland Status: Acute (2) Carotid artery occlusion and stenosis Status: Acute (3) Fever Status: Acute (4) Leukocytosis Status: Acute (5) Pneumonia Status: Acute (6) Flu Status: Acute (7) Influenza B Status: Acute (8) Influenza B Status: Acute (9) Influenza, bronchopneumonia Status: Acute (10) Influenza, bronchopneumonia Status: Acute - Assessment and Plan (Free Text) Plan: for picc CONT IV RX
--- NOTE | 2018-06-03 23:24 | CP.PCM.PN ---
Subjective - Date & Time of Evaluation Date of Evaluation: 06/02/18 Time of Evaluation: 15:15 - Subjective Subjective: Patient seen and evaluated No new events noted Objective - Vital Signs/Intake and Output Vital Signs (last 24 hours): Temp Pulse Resp BP Pulse Ox 97.4 F L 68 18 135/70 97 06/03/18 15:03 06/03/18 18:00 06/03/18 15:03 06/03/18 22:22 06/03/18 15:03 Intake and Output: 06/03/18 06/04/18 18:59 06:59 Intake Total 650 Output Total 251 Balance 399 - Medications Medications: Current Medications Acetaminophen (Tylenol 650mg/20.3ml Solution Ud) 650 mg PO Q6H PRN PRN Reason: Pain, Mild (1-3) Last Admin: 06/03/18 03:36 Dose: 650 mg Albuterol/Ipratropium (Duoneb 3 Mg/0.5 Mg (3 Ml) Ud) 3 ml INH RQ6 [facility] Last Admin: 06/03/18 19:48 Dose: 3 ml Amlodipine Besylate (Norvasc) 10 mg GT DAILY [facility] Last Admin: 06/03/18 11:04 Dose: 10 mg Apixaban (Eliquis) 5 mg GT BID [facility] Last Admin: 06/03/18 18:54 Dose: 5 mg Artificial Tears (Artificial Tears Refresh Celluvisc) 0 ml OU Q6H PRN Aspirin (Aspirin Chewable) 81 mg GT DAILY [facility] Last Admin: 06/03/18 11:05 Dose: 81 mg Docusate Sodium (Colace) 100 mg GT BID [facility] Last Admin: 06/03/18 18:53 Dose: 100 mg Famotidine (Pepcid) 20 mg GT Q12 [facility] Last Admin: 06/03/18 22:21 Dose: 20 mg Furosemide (Lasix) 20 mg PEG DAILY [facility] Last Admin: 06/03/18 11:05 Dose: 20 mg Cefepime HCl 1 gm/ Dextrose 50 mls @ 100 mls/hr IVPB Q12H [facility]; Protocol Last Admin: 06/03/18 13:14 Dose: 100 mls/hr Gentamicin Sulfate 60 mg/ (Sodium Chloride) 101.5 mls @ 100 mls/hr IVPB Q8H [facility]; Protocol Last Admin: 10/11/18 22:21 Dose: 100 mls/hr Levothyroxine Sodium (Synthroid) 25 mcg GT DAILY@0630 [facility] Last Admin: 06/03/18 05:59 Dose: 25 mcg Metoprolol Tartrate (Lopressor) 25 mg GT Q12 [facility] Last Admin: 06/03/18 22:22 Dose: 25 mg Ondansetron HCl (Zofran Tab) 4 mg GT Q6 PRN PRN Reason: Nausea/Vomiting Oseltamivir Phosphate (Tamiflu Cap) 75 mg PO BID [facility]; Protocol Stop: 06/06/18 00:26 Last Admin: 06/03/18 18:53 Dose: 75 mg Oxycodone HCl (Oxycodone Immediate Release Tab) 5 mg GT Q6 PRN PRN Reason: Pain, moderate (4-7) Last Admin: 06/03/18 11:40 Dose: 5 mg Rosuvastatin Calcium (Crestor) 5 mg PO HS [facility] Last Admin: 06/03/18 22:21 Dose: 5 mg Saliva Substitute (Mouth Kote 236 Ml) 0 ml MM TID [facility] Last Admin: 06/03/18 18:55 Dose: 1 spr Scopolamine (Transderm-Scop) 1 patch TD Q72 [facility] Sennosides (Senokot Tab) 8.6 mg PEG HS [facility] Last Admin: 06/03/18 22:21 Dose: 8.6 mg - Labs Labs: 06/03/18 06:45 06/02/18 07:30 PT 18.9 SECONDS (9.7-12.2) H 05/30/18 21:02 INR 1.7 05/30/18 21:02 APTT 36 SECONDS (21-34) H 05/30/18 21:02
--- NOTE | 2018-06-03 23:25 | CP.PCM.PN ---
Subjective - Date & Time of Evaluation Date of Evaluation: 06/03/18 Time of Evaluation: 18:25 - Subjective Subjective: Patient seen and evaluated No new events noted Objective - Vital Signs/Intake and Output Vital Signs (last 24 hours): Temp Pulse Resp BP Pulse Ox 97.4 F L 68 18 135/70 97 06/03/18 15:03 06/03/18 18:00 06/03/18 15:03 06/03/18 22:22 06/03/18 15:03 Intake and Output: 06/03/18 06/04/18 18:59 06:59 Intake Total 650 Output Total 251 Balance 399 - Medications Medications: Current Medications Acetaminophen (Tylenol 650mg/20.3ml Solution Ud) 650 mg PO Q6H PRN PRN Reason: Pain, Mild (1-3) Last Admin: 06/03/18 03:36 Dose: 650 mg Albuterol/Ipratropium (Duoneb 3 Mg/0.5 Mg (3 Ml) Ud) 3 ml INH RQ6 [facility] Last Admin: 06/03/18 19:48 Dose: 3 ml Amlodipine Besylate (Norvasc) 10 mg GT DAILY [facility] Last Admin: 06/03/18 11:04 Dose: 10 mg Apixaban (Eliquis) 5 mg GT BID [facility] Last Admin: 06/03/18 18:54 Dose: 5 mg Artificial Tears (Artificial Tears Refresh Celluvisc) 0 ml OU Q6H PRN Aspirin (Aspirin Chewable) 81 mg GT DAILY [facility] Last Admin: 06/03/18 11:05 Dose: 81 mg Docusate Sodium (Colace) 100 mg GT BID [facility] Last Admin: 06/03/18 18:53 Dose: 100 mg Famotidine (Pepcid) 20 mg GT Q12 [facility] Last Admin: 06/03/18 22:21 Dose: 20 mg Furosemide (Lasix) 20 mg PEG DAILY [facility] Last Admin: 06/03/18 11:05 Dose: 20 mg Cefepime HCl 1 gm/ Dextrose 50 mls @ 100 mls/hr IVPB Q12H [facility]; Protocol Last Admin: 06/03/18 13:14 Dose: 100 mls/hr Gentamicin Sulfate 60 mg/ (Sodium Chloride) 101.5 mls @ 100 mls/hr IVPB Q8H [facility]; Protocol Last Admin: 10/11/18 22:21 Dose: 100 mls/hr Levothyroxine Sodium (Synthroid) 25 mcg GT DAILY@0630 [facility] Last Admin: 06/03/18 05:59 Dose: 25 mcg Metoprolol Tartrate (Lopressor) 25 mg GT Q12 [facility] Last Admin: 06/03/18 22:22 Dose: 25 mg Ondansetron HCl (Zofran Tab) 4 mg GT Q6 PRN PRN Reason: Nausea/Vomiting Oseltamivir Phosphate (Tamiflu Cap) 75 mg PO BID [facility]; Protocol Stop: 06/06/18 00:26 Last Admin: 06/03/18 18:53 Dose: 75 mg Oxycodone HCl (Oxycodone Immediate Release Tab) 5 mg GT Q6 PRN PRN Reason: Pain, moderate (4-7) Last Admin: 06/03/18 11:40 Dose: 5 mg Rosuvastatin Calcium (Crestor) 5 mg PO HS [facility] Last Admin: 06/03/18 22:21 Dose: 5 mg Saliva Substitute (Mouth Kote 236 Ml) 0 ml MM TID [facility] Last Admin: 06/03/18 18:55 Dose: 1 spr Scopolamine (Transderm-Scop) 1 patch TD Q72 [facility] Sennosides (Senokot Tab) 8.6 mg PEG HS [facility] Last Admin: 06/03/18 22:21 Dose: 8.6 mg - Labs Labs: 06/03/18 06:45 06/02/18 07:30 PT 18.9 SECONDS (9.7-12.2) H 05/30/18 21:02 INR 1.7 05/30/18 21:02 APTT 36 SECONDS (21-34) H 05/30/18 21:02
[2018-06-04] MEDS: oxyCODONE 5 mg Immediate Release Tab GT PRN (00:12)
[2018-06-04] MEDS: Albuterol-Ipratrop 3 mg / 0.5 (3 ml) UD INH SCH ×4 (01:20→19:30)
--- NOTE | 2018-06-04 05:30 | PN ---
DATE: 06/03/2018 SUBJECTIVE: The patient is a 67-year-old female. The patient was seen and examined at the bedside on 06/03/2018. Looking comfortable. Nurse is standing on the bedside also. Length of time discussion was done. All questions were answered. Still coughing and congested. Complaining about chest pain with coughing, but no fever and no chills. PHYSICAL EXAMINATION: VITAL SIGNS: Temperature 97.5, pulse 69, respiratory rate 18, blood pressure 95/52, pulse oximetry 97%. HEENT: Head, normocephalic and atraumatic. Eyes, closed. Nose patent. Mucous membranes moist. CHEST: Clear to auscultation. HEART: S1 and S2 positive. ABDOMEN: Soft. Positive bowel sounds. No organomegaly. EXTREMITIES: No edema. No cyanosis. NEUROLOGIC: The patient is awake and alert. Follows simple commands. MEDICATIONS: Tylenol, DuoNeb, Norvasc, aspirin, Colace, Pepcid, Lasix, Lopressor. LABORATORY DATA: White blood cells 24.7, hemoglobin 9.3, hematocrit 29.4, platelets noted. Sodium 140, potassium 4.9, BUN 39, creatinine 0.5, glucose 108. ASSESSMENT AND PLAN: Ms. Ghada Becerra is a 67-year-old lady with leukocytosis, anemia, hypochloremia, renal insufficiency, hyperglycemia. As per Infectious Disease, the patient needs 10 days of intravenous antibiotics. Sputum is positive for Pseudomonas. Continue present treatment. Positive culture and sensitivity. Follow up chest x-ray. 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 Deep venous thrombosis. The patient has a lung biopsy, looks like metastasis. Seen by Cardiology, Infectious Disease, and Pulmonary. Still feeling fatigue and tired. The patient has carotid artery occlusion of bilateral stenosis. History of pneumonia. Continue intravenous antibiotics through the peripherally inserted central catheter actually for 10 days. We will follow up. Faviola Catherine MD [facility]
[2018-06-04 05:44] LABS: BASO # 0.1 K/uL (0.0-0.2); BASO % 0.4 % (0.0-2.0); EOS # 0.4 K/uL (0.0-0.7); EOS % 2.7 % (0.0-4.0); LYMPH # 1.3 K/uL (1.0-4.3); LYMPH % 8.4 % (20.0-40.0); MEAN CORPUSCULAR HGB CONC 32.5 g/dL (33.0-37.0); MEAN PLATELET VOLUME 8.4 fL (7.2-11.7); MONO # 1.2 K/uL (0.0-0.8); MONO % 7.7 % (0.0-10.0); NEUT # 12.7 K/uL (1.8-7.0); NEUT % 80.8 % (50.0-75.0); PLATELET COUNT 388 K/uL (130-400); RED CELL DISTRIBUTION WIDTH 18.7 % (11.5-14.5); WHITE BLOOD COUNT 15.7 K/uL (4.8-10.8)
[2018-06-04] MEDS: Levothyroxine 25 MCG TAB GT SCH (05:54)
[2018-06-04 06:29] LABS: BLOOD UREA NITROGEN 28 mg/dL (7-17); CALCIUM 9.4 mg/dl (8.6-10.4); GFR NON-AFRICAN AMERICAN > 60
[2018-06-04 08:43] LABS: BANDS 3 % (0-2); EOSINOPHIL 1 % (0-4); LYMPHOCYTE 8 % (20-40); MONOCYTE 2 % (0-10); NEUTROPHIL 86 % (50-75); PLATELET ESTIMATE NORMAL (NORMAL); TOTAL CELLS COUNTED 100
[2018-06-04 08:48] LABS: ANISOCYTOSIS SLIGHT; TOXIC GRANULATION PRESENT
[2018-06-04 08:50] LABS: HYPOCHROMIC SLIGHT; MICROCYTOSIS SLIGHT; POLYCHROMIC SLIGHT
[2018-06-04 08:51] LABS: LARGE PLATELETS PRESENT
--- NOTE | 2018-06-04 16:39 | CP.PCM.PN ---
Subjective - Date & Time of Evaluation Date of Evaluation: 06/04/18 Time of Evaluation: 10:20 - Subjective Subjective: patient seen and examined shortness of breath and cough improving Afebrile No abdominal pain Objective - Vital Signs/Intake and Output Vital Signs (last 24 hours): Temp Pulse Resp BP Pulse Ox 98.3 F 71 20 102/60 98 06/04/18 15:20 06/04/18 15:20 06/04/18 15:20 06/04/18 15:20 06/04/18 15:20 Intake and Output: 06/04/18 06/04/18 06:59 18:59 Intake Total 1380 Output Total 350 300 Balance 1030 -300 - Medications Medications: Current Medications Acetaminophen (Tylenol 650mg/20.3ml Solution Ud) 650 mg PO Q6H PRN PRN Reason: Pain, Mild (1-3) Last Admin: 06/03/18 03:36 Dose: 650 mg Albuterol/Ipratropium (Duoneb 3 Mg/0.5 Mg (3 Ml) Ud) 3 ml INH RQ6 [facility] Last Admin: 06/04/18 12:59 Dose: 3 ml Amlodipine Besylate (Norvasc) 10 mg GT DAILY [facility] Last Admin: 06/04/18 09:28 Dose: 10 mg Apixaban (Eliquis) 5 mg GT BID [facility] Last Admin: 06/04/18 09:29 Dose: 5 mg Artificial Tears (Artificial Tears Refresh Celluvisc) 0 ml OU Q6H PRN Aspirin (Aspirin Chewable) 81 mg GT DAILY [facility] Last Admin: 06/04/18 09:29 Dose: 81 mg Docusate Sodium (Colace) 100 mg GT BID [facility] Last Admin: 06/04/18 09:29 Dose: 100 mg Famotidine (Pepcid) 20 mg GT Q12 [facility] Last Admin: 06/04/18 09:29 Dose: 20 mg Furosemide (Lasix) 20 mg PEG DAILY [facility] Last Admin: 06/04/18 09:29 Dose: 20 mg Cefepime HCl 1 gm/ Dextrose 50 mls @ 100 mls/hr IVPB Q12H [facility]; Protocol Last Admin: 06/04/18 13:00 Dose: 100 mls/hr Gentamicin Sulfate 60 mg/ (Sodium Chloride) 101.5 mls @ 100 mls/hr IVPB Q8H [facility]; Protocol Last Admin: 06/04/18 14:00 Dose: 100 mls/hr Levothyroxine Sodium (Synthroid) 25 mcg GT DAILY@0630 [facility] Last Admin: 06/04/18 05:54 Dose: 25 mcg Metoprolol Tartrate (Lopressor) 25 mg GT Q12 [facility] Last Admin: 06/04/18 09:28 Dose: 25 mg Ondansetron HCl (Zofran Tab) 4 mg GT Q6 PRN PRN Reason: Nausea/Vomiting Oseltamivir Phosphate (Tamiflu Cap) 75 mg PO BID [facility]; Protocol Stop: 06/06/18 00:26 Last Admin: 06/04/18 09:28 Dose: 75 mg Rosuvastatin Calcium (Crestor) 5 mg PO HS [facility] Last Admin: 06/03/18 22:21 Dose: 5 mg Saliva Substitute (Mouth Kote 236 Ml) 0 ml MM TID [facility] Last Admin: 06/04/18 13:01 Dose: 1 spr Scopolamine (Transderm-Scop) 1 patch TD Q72 [facility] Sennosides (Senokot Tab) 8.6 mg PEG HS [facility] Last Admin: 06/03/18 22:21 Dose: 8.6 mg - Labs Labs: 06/04/18 05:32 06/04/18 05:32 PT 18.9 SECONDS (9.7-12.2) H 05/30/18 21:02 INR 1.7 05/30/18 21:02 APTT 36 SECONDS (21-34) H 05/30/18 21:02 - Head Exam Head Exam: ATRAUMATIC, NORMOCEPHALIC - ENT Exam ENT Exam: Mucous Membranes Moist - Neck Exam Neck Exam: Normal Inspection - Respiratory Exam Respiratory Exam: Rales, Rhonchi - Cardiovascular Exam Cardiovascular Exam: REGULAR RHYTHM - GI/Abdominal Exam GI & Abdominal Exam: Soft, Normal Bowel Sounds Assessment and Plan (1) Pneumonia Assessment & Plan: Continue with antibiotics Repeat chest x-ray Bronchodilators Clinically improving repeat CAT scan in 2 weeks Status: Acute (2) Flu Status: Acute (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
--- NOTE | 2018-06-04 17:31 | CP.PCM.PN ---
Subjective - Date & Time of Evaluation Date of Evaluation: 06/04/18 Time of Evaluation: 09:00 - Subjective Subjective: afeb more awake nad Objective - Vital Signs/Intake and Output Vital Signs (last 24 hours): Temp Pulse Resp BP Pulse Ox 98.3 F 71 20 102/60 98 06/04/18 15:20 06/04/18 15:20 06/04/18 15:20 06/04/18 15:20 06/04/18 15:20 Intake and Output: 06/04/18 06/04/18 06:59 18:59 Intake Total 1380 Output Total 350 300 Balance 1030 -300 - Medications Medications: Current Medications Acetaminophen (Tylenol 650mg/20.3ml Solution Ud) 650 mg PO Q6H PRN PRN Reason: Pain, Mild (1-3) Last Admin: 06/03/18 03:36 Dose: 650 mg Albuterol/Ipratropium (Duoneb 3 Mg/0.5 Mg (3 Ml) Ud) 3 ml INH RQ6 [facility] Last Admin: 06/04/18 12:59 Dose: 3 ml Amlodipine Besylate (Norvasc) 10 mg GT DAILY [facility] Last Admin: 06/04/18 09:28 Dose: 10 mg Apixaban (Eliquis) 5 mg GT BID [facility] Last Admin: 06/04/18 09:29 Dose: 5 mg Artificial Tears (Artificial Tears Refresh Celluvisc) 0 ml OU Q6H PRN Aspirin (Aspirin Chewable) 81 mg GT DAILY [facility] Last Admin: 06/04/18 09:29 Dose: 81 mg Docusate Sodium (Colace) 100 mg GT BID [facility] Last Admin: 06/04/18 09:29 Dose: 100 mg Famotidine (Pepcid) 20 mg GT Q12 [facility] Last Admin: 06/04/18 09:29 Dose: 20 mg Furosemide (Lasix) 20 mg PEG DAILY [facility] Last Admin: 06/04/18 09:29 Dose: 20 mg Cefepime HCl 1 gm/ Dextrose 50 mls @ 100 mls/hr IVPB Q12H [facility]; Protocol Last Admin: 06/04/18 13:00 Dose: 100 mls/hr Gentamicin Sulfate 60 mg/ (Sodium Chloride) 101.5 mls @ 100 mls/hr IVPB Q12 [facility]; Protocol Levothyroxine Sodium (Synthroid) 25 mcg GT DAILY@0630 [facility] Last Admin: 06/04/18 05:54 Dose: 25 mcg Metoprolol Tartrate (Lopressor) 25 mg GT Q12 [facility] Last Admin: 06/04/18 09:28 Dose: 25 mg Ondansetron HCl (Zofran Tab) 4 mg GT Q6 PRN PRN Reason: Nausea/Vomiting Oseltamivir Phosphate (Tamiflu Cap) 75 mg PO BID [facility]; Protocol Stop: 06/06/18 00:26 Last Admin: 06/04/18 09:28 Dose: 75 mg Rosuvastatin Calcium (Crestor) 5 mg PO HS [facility] Last Admin: 06/03/18 22:21 Dose: 5 mg Saliva Substitute (Mouth Kote 236 Ml) 0 ml MM TID [facility] Last Admin: 06/04/18 13:01 Dose: 1 spr Scopolamine (Transderm-Scop) 1 patch TD Q72 [facility] Sennosides (Senokot Tab) 8.6 mg PEG [facility] Last Admin: 06/03/18 22:21 Dose: 8.6 mg - Labs Labs: 06/04/18 05:32 06/04/18 05:32 PT 18.9 SECONDS (9.7-12.2) H 05/30/18 21:02 INR 1.7 05/30/18 21:02 APTT 36 SECONDS (21-34) H 05/30/18 21:02 - Constitutional Appears: Non-toxic, Chronically Ill - Head Exam Head Exam: NORMOCEPHALIC - Eye Exam Eye Exam: absent: Scleral icterus - ENT Exam ENT Exam: Mucous Membranes Dry. absent: Normal Exam, Normal Oropharynx Additional comments: left neck wound same - Neck Exam Neck Exam: absent: Lymphadenopathy - Respiratory Exam Respiratory Exam: Decreased Breath Sounds - Cardiovascular Exam Cardiovascular Exam: REGULAR RHYTHM - GI/Abdominal Exam GI & Abdominal Exam: Distended, Soft - Rectal Exam Rectal Exam: Deferred - Exam Exam: NORMAL INSPECTION - Extremities Exam Extremities Exam: absent: Pedal Edema - Back Exam Back Exam: absent: CVA tenderness (L), CVA tenderness (R) - Neurological Exam Neurological Exam: Alert, Awake, Oriented x3 - Psychiatric Exam Psychiatric exam: Depressed - Skin Skin Exam: Dry Assessment and Plan (1) Carcinoma of parotid gland Status: Acute (2) Carotid artery occlusion and stenosis Status: Acute (3) Fever Status: Acute (4) Leukocytosis Status: Acute (5) Pneumonia Status: Acute (6) Flu Status: Acute (7) Influenza B Status: Acute (8) Influenza B Status: Acute (9) Influenza, bronchopneumonia Status: Acute (10) Influenza, bronchopneumonia Status: Acute - Assessment and Plan (Free Text) Assessment: cont iv gentamicin check trough level monitor levels follow up dr Miller and dr Patterson
[2018-06-04] MEDS: Acetaminophen 650mg/20.3ml solution UD PO PRN (23:14)
[2018-06-05] MEDS: Albuterol-Ipratrop 3 mg / 0.5 (3 ml) UD INH SCH ×4 (01:21→19:08)
--- NOTE | 2018-06-05 02:11 | PN ---
DATE: 06/04/2018 SUBJECTIVE: The patient is a 67-year-old female. The patient was seen and examined at the bedside on 06/04/2018 and looking comfortable. No change in the status. Getting antibiotics. Shortness of breath and coughing are improving. Afebrile. No abdominal pain. PHYSICAL EXAMINATION: VITAL SIGNS: Temperature 98.3, pulse 71, respiratory rate 20, blood pressure 102/50, pulse oximetry 98. HEENT: Head, normocephalic and atraumatic. Eyes, PERRLA. Extraocular muscles intact. Conjunctivae clear. Nose patent. Mucous membranes moist. NECK: Supple. No carotid bruits. No JVD or thyromegaly. CHEST: Bilaterally symmetrical. HEART: S1 and S2 positive. LUNGS: Clear to auscultation. ABDOMEN: Soft. Positive bowel sounds. No organomegaly. EXTREMITIES: No edema, no cyanosis. NEUROLOGIC: The patient is awake, alert. Moving all four extremities. No focal deficits. MEDICATIONS: Tylenol, DuoNeb, Norvasc, Eliquis, aspirin, Colace, Pepcid, Lasix, gentamicin, levothyroxine, metoprolol, Tamiflu. LABORATORY DATA: White blood cells 15.7, hemoglobin 9, hematocrit 27.7, and platelets 388. Sodium 138, potassium 4.7, BUN 48, creatinine 0.4, and glucose 141. ASSESSMENT AND PLAN: Ms. Ghada Becerra is a 67-year-old lady who is admitted with leukocytosis, anemia, hypochloremia, renal insufficiency, hyperglycemia, came with pneumonia. Continue with antibiotics. Repeat chest x-ray, bronchodilator. Clinically improving. Repeat scanning in two weeks as per Nephrology. The patient has flu, getting Tamiflu. Carcinoma of the parotid gland, got chemotherapy and radiation therapy. Deep venous thrombosis, getting blood thinner. Gastrointestinal and deep vein thrombosis prophylaxis. Repeat labs. We will follow up. Faviola Catherine MD
[2018-06-05] MEDS: Levothyroxine 25 MCG TAB GT SCH (06:09)
[2018-06-05] MEDS: Acetaminophen 650mg/20.3ml solution UD PO PRN ×3 (06:09→21:15)
--- NOTE | 2018-06-05 11:47 | CP.PCM.PCO ---
Physician Communication Note - Physician Communication Note Physician Communication Note: total dose of genta x 7 days, no picc line needed as per Dr. Abraham
--- NOTE | 2018-06-05 14:32 | CP.PCM.PN ---
Subjective - Date & Time of Evaluation Date of Evaluation: 06/05/18 Time of Evaluation: 12:00 - Subjective Subjective: patient seen and examined Copious secretions Congested Less shortness of breath Afebrile On IV antibiotics Objective - Vital Signs/Intake and Output Vital Signs (last 24 hours): Temp Pulse Resp BP Pulse Ox 97.3 F L 64 24 105/55 L 100 06/05/18 07:30 06/05/18 07:30 06/05/18 14:28 06/05/18 13:00 06/05/18 07:30 Intake and Output: 06/05/18 06/05/18 06:59 18:59 Intake Total 1350 Output Total 450 Balance 900 - Medications Medications: Current Medications Acetaminophen (Tylenol 650mg/20.3ml Solution Ud) 650 mg PO Q6H PRN PRN Reason: Pain, Mild (1-3) Last Admin: 06/05/18 13:30 Dose: 650 mg Albuterol/Ipratropium (Duoneb 3 Mg/0.5 Mg (3 Ml) Ud) 3 ml INH RQ6 [facility] Last Admin: 06/05/18 13:00 Dose: 3 ml Amlodipine Besylate (Norvasc) 10 mg GT DAILY [facility] Last Admin: 06/05/18 10:16 Dose: Not Given Apixaban (Eliquis) 5 mg GT BID [facility] Last Admin: 06/05/18 10:14 Dose: 5 mg Artificial Tears (Artificial Tears Refresh Celluvisc) 0 ml OU Q6H PRN Aspirin (Aspirin Chewable) 81 mg GT DAILY [facility] Last Admin: 06/05/18 10:14 Dose: 81 mg Docusate Sodium (Colace) 100 mg GT BID [facility] Last Admin: 06/05/18 10:19 Dose: Not Given Famotidine (Pepcid) 20 mg GT Q12 [facility] Last Admin: 06/05/18 10:14 Dose: 20 mg Furosemide (Lasix) 20 mg PEG DAILY [facility] Last Admin: 06/05/18 10:15 Dose: Not Given Cefepime HCl 1 gm/ Dextrose 50 mls @ 100 mls/hr IVPB Q12H [facility]; Protocol Last Admin: 06/05/18 13:49 Dose: 100 mls/hr Gentamicin Sulfate 60 mg/ (Sodium Chloride) 101.5 mls @ 100 mls/hr IVPB Q12 [facility]; Protocol Last Admin: 06/05/18 10:53 Dose: 100 mls/hr Levothyroxine Sodium (Synthroid) 25 mcg GT DAILY@0630 [facility] Last Admin: 06/05/18 06:09 Dose: 25 mcg Metoprolol Tartrate (Lopressor) 25 mg GT Q12 [facility] Last Admin: 06/05/18 10:15 Dose: Not Given Ondansetron HCl (Zofran Tab) 4 mg GT Q6 PRN PRN Reason: Nausea/Vomiting Oseltamivir Phosphate (Tamiflu Cap) 75 mg PO BID [facility]; Protocol Stop: 06/06/18 00:26 Last Admin: 06/05/18 10:16 Dose: 75 mg Oxycodone HCl (Oxycodone Immediate Release Tab) 5 mg PO Q6 PRN PRN Reason: Pain, moderate (4-7) Rosuvastatin Calcium (Crestor) 5 mg PO HS [facility] Last Admin: 06/04/18 21:35 Dose: 5 mg Saliva Substitute (Mouth Kote 236 Ml) 0 ml MM TID [facility] Last Admin: 06/05/18 13:50 Dose: Not Given Scopolamine (Transderm-Scop) 1 patch TD Q72 [facility] Sennosides (Senokot Tab) 8.6 mg PEG HS [facility] Last Admin: 06/04/18 21:36 Dose: 8.6 mg - Labs Labs: 06/04/18 05:32 06/04/18 05:32 PT 18.9 SECONDS (9.7-12.2) H 05/30/18 21:02 INR 1.7 05/30/18 21:02 APTT 36 SECONDS (21-34) H 05/30/18 21:02 - Head Exam Head Exam: ATRAUMATIC, NORMOCEPHALIC - ENT Exam ENT Exam: Mucous Membranes Moist - Respiratory Exam Respiratory Exam: Rales, Rhonchi - Cardiovascular Exam Cardiovascular Exam: REGULAR RHYTHM Assessment and Plan (1) Pneumonia Assessment & Plan: Followup chest x-ray Antibiotics Nebulizer treatment Suction/pulmonary toilet Status: Acute (2) Flu Status: Acute (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
--- NOTE | 2018-06-06 00:33 | PN ---
DATE: 06/05/2018 SUBJECTIVE: The patient was seen and examined at the bedside on 06/05/2018, still congested, secretions, shortness of breath is a little bit better. No chest pain. No fever. No chills. No headaches. getting IV antibiotics , PHYSICAL EXAMINATION: VITAL SIGNS: Temperature 97.3, pulse 64, respiratory rate 24, blood pressure 105/55, and pulse oximetry 100. HEENT: Head, normocephalic and atraumatic. Eyes, PERRLA. Extraocular muscles intact. Conjunctivae clear. Nose patent. Mucous membranes moist. NECK: Supple. No carotid bruits. No JVD or thyromegaly. CHEST: Bilaterally symmetrical. HEART: S1 and S2 positive. LUNGS: Clear to auscultation. ABDOMEN: Soft. Positive bowel sounds. No organomegaly. EXTREMITIES: No edema, no cyanosis. NEUROLOGIC: The patient is awake and alert. Follows simple commands. SKIN: Left side of the face, parotid area is covered with dressing, status post surgery. MEDICATIONS: Tylenol, DuoNeb, Eliquis, aspirin, Colace, Pepcid, Lasix, Synthroid, Lopressor, Zofran, Tamiflu, oxycodone, Crestor, Senokot. LABORATORY DATA: White blood cell 15.7, hemoglobin 9, hematocrit 27.7, and platelets 388. Sodium 138, potassium 4.7, BUN 28, creatinine 0.4, and glucose 131. ASSESSMENT AND PLAN: Ms. Ghada Becerra is a 67-year-old female with leukocytosis, anemia, hyperchloremia, renal sufficiency, hyperglycemia, has history of pneumonia, had multiple courses of antibiotics, anti-nebulizer treatment, suction and pulmonary toileting; history of flu, getting Tamiflu, completed 5 days. Carcinoma of the prostate gland, status post surgery. Deep vein thrombosis prophylaxis. Gastrointestinal prophylaxis. Appreciated Dr. Bashir Patterson's input and Dr. Mahesh Abraham's input. The patient was seen by grill prep cook with Dr. Miller also. Continue gentamicin. Check trough levels. Monitor levels. Repeat labs. We will follow up. Faviola Catherine MD [facility]
[2018-06-06] MEDS: Albuterol-Ipratrop 3 mg / 0.5 (3 ml) UD INH SCH ×4 (02:05→19:49)
[2018-06-06] MEDS: oxyCODONE 5 mg Immediate Release Tab PO PRN (04:57)
[2018-06-06] MEDS: Levothyroxine 25 MCG TAB GT SCH (05:40)
[2018-06-06] MEDS: Acetaminophen 650mg/20.3ml solution UD PO PRN ×2 (10:33→21:14)
--- NOTE | 2018-06-06 14:54 | CP.PCM.PN ---
Subjective - Date & Time of Evaluation Date of Evaluation: 06/06/18 Time of Evaluation: 09:00 - Subjective Subjective: events noted iv rx renewed Objective - Vital Signs/Intake and Output Vital Signs (last 24 hours): Temp Pulse Resp BP Pulse Ox 97.5 F L 68 20 127/72 100 06/06/18 07:00 06/06/18 07:00 06/06/18 13:41 06/06/18 10:31 06/06/18 07:00 Intake and Output: 06/06/18 06/06/18 06:59 18:59 Intake Total 1190 650 Output Total 800 Balance 390 650 - Medications Medications: Current Medications Acetaminophen (Tylenol 650mg/20.3ml Solution Ud) 650 mg PO Q6H PRN PRN Reason: Pain, Mild (1-3) Last Admin: 06/06/18 10:33 Dose: 650 mg Albuterol/Ipratropium (Duoneb 3 Mg/0.5 Mg (3 Ml) Ud) 3 ml INH RQ6 [facility] Last Admin: 06/06/18 13:40 Dose: 3 ml Amlodipine Besylate (Norvasc) 10 mg GT DAILY [facility] Last Admin: 06/06/18 10:31 Dose: 10 mg Apixaban (Eliquis) 5 mg GT BID [facility] Last Admin: 06/06/18 10:31 Dose: 5 mg Artificial Tears (Artificial Tears Refresh Celluvisc) 0 ml OU Q6H PRN Aspirin (Aspirin Chewable) 81 mg GT DAILY [facility] Last Admin: 06/06/18 10:32 Dose: 81 mg Docusate Sodium (Colace) 100 mg GT BID [facility] Last Admin: 06/06/18 10:35 Dose: Not Given Famotidine (Pepcid) 20 mg GT Q12 [facility] Last Admin: 06/06/18 10:32 Dose: 20 mg Furosemide (Lasix) 20 mg PEG DAILY [facility] Last Admin: 06/06/18 10:31 Dose: 20 mg Cefepime HCl 1 gm/ Dextrose 50 mls @ 100 mls/hr IVPB Q12H [facility]; Protocol Last Admin: 06/06/18 12:56 Dose: 100 mls/hr Gentamicin Sulfate 60 mg/ (Sodium Chloride) 101.5 mls @ 100 mls/hr IVPB Q12 [facility]; Protocol Last Admin: 06/06/18 10:29 Dose: 100 mls/hr Levothyroxine Sodium (Synthroid) 25 mcg GT DAILY@0630 [facility] Last Admin: 06/06/18 05:40 Dose: 25 mcg Metoprolol Tartrate (Lopressor) 25 mg GT Q12 [facility] Last Admin: 06/06/18 10:31 Dose: 25 mg Ondansetron HCl (Zofran Tab) 4 mg GT Q6 PRN PRN Reason: Nausea/Vomiting Oxycodone HCl (Oxycodone Immediate Release Tab) 5 mg PO Q6 PRN PRN Reason: Pain, moderate (4-7) Last Admin: 06/06/18 04:57 Dose: 5 mg Rosuvastatin Calcium (Crestor) 5 mg PO HS [facility] Last Admin: 06/05/18 21:02 Dose: 5 mg Saliva Substitute (Mouth Kote 236 Ml) 0 ml MM TID [facility] Last Admin: 06/06/18 13:03 Dose: Not Given Scopolamine (Transderm-Scop) 1 patch TD Q72 [facility] Sennosides (Senokot Tab) 8.6 mg PEG HS [facility] Last Admin: 06/05/18 21:02 Dose: 8.6 mg - Labs Labs: 06/04/18 05:32 06/04/18 05:32 PT 18.9 SECONDS (9.7-12.2) H 05/30/18 21:02 INR 1.7 05/30/18 21:02 APTT 36 SECONDS (21-34) H 05/30/18 21:02 - Constitutional Appears: Non-toxic, Chronically Ill - Head Exam Head Exam: NORMOCEPHALIC - Eye Exam Eye Exam: absent: Scleral icterus - ENT Exam ENT Exam: Mucous Membranes Dry - Neck Exam Neck Exam: absent: Lymphadenopathy - Respiratory Exam Respiratory Exam: Decreased Breath Sounds - Cardiovascular Exam Cardiovascular Exam: REGULAR RHYTHM - GI/Abdominal Exam GI & Abdominal Exam: Distended, Soft Assessment and Plan (1) Carcinoma of parotid gland Status: Acute (2) Carotid artery occlusion and stenosis Status: Acute (3) Fever Status: Acute (4) Leukocytosis Status: Acute (5) Pneumonia Status: Acute (6) Flu Status: Acute (7) Influenza B Status: Acute (8) Influenza B Status: Acute (9) Influenza, bronchopneumonia Status: Acute (10) Influenza, bronchopneumonia Status: Acute - Assessment and Plan (Free Text) Assessment: cont iv rx
--- NOTE | 2018-06-06 20:36 | CP.PCM.PN ---
Subjective - Date & Time of Evaluation Date of Evaluation: 06/06/18 Time of Evaluation: 18:45 - Subjective Subjective: patient seen and examined less congested awake and responsive Still has cough Continue antibiotics Continue pulmonary toilet Objective - Vital Signs/Intake and Output Vital Signs (last 24 hours): Temp Pulse Resp BP Pulse Ox 97.6 F 66 18 109/57 L 99 06/06/18 15:58 06/06/18 16:00 06/06/18 20:00 06/06/18 15:58 06/06/18 15:58 Intake and Output: 06/06/18 06/07/18 18:59 06:59 Intake Total 650 Balance 650 - Medications Medications: Current Medications Acetaminophen (Tylenol 650mg/20.3ml Solution Ud) 650 mg PO Q6H PRN PRN Reason: Pain, Mild (1-3) Last Admin: 06/06/18 10:33 Dose: 650 mg Albuterol/Ipratropium (Duoneb 3 Mg/0.5 Mg (3 Ml) Ud) 3 ml INH RQ6 [facility] Last Admin: 06/06/18 19:49 Dose: 3 ml Amlodipine Besylate (Norvasc) 10 mg GT DAILY [facility] Last Admin: 06/06/18 10:31 Dose: 10 mg Apixaban (Eliquis) 5 mg GT BID [facility] Last Admin: 06/06/18 17:38 Dose: 5 mg Artificial Tears (Artificial Tears Refresh Celluvisc) 0 ml OU Q6H PRN Aspirin (Aspirin Chewable) 81 mg GT DAILY [facility] Last Admin: 06/06/18 10:32 Dose: 81 mg Famotidine (Pepcid) 20 mg GT Q12 [facility] Last Admin: 06/06/18 10:32 Dose: 20 mg Furosemide (Lasix) 20 mg PEG DAILY [facility] Last Admin: 06/06/18 10:31 Dose: 20 mg Cefepime HCl 1 gm/ Dextrose 50 mls @ 100 mls/hr IVPB Q12H [facility]; Protocol Last Admin: 06/06/18 12:56 Dose: 100 mls/hr Gentamicin Sulfate 60 mg/ (Sodium Chloride) 101.5 mls @ 100 mls/hr IVPB Q12 [facility]; Protocol Last Admin: 06/06/18 10:29 Dose: 100 mls/hr Levothyroxine Sodium (Synthroid) 25 mcg GT DAILY@0630 [facility] Last Admin: 06/06/18 05:40 Dose: 25 mcg Metoprolol Tartrate (Lopressor) 25 mg GT Q12 [facility] Last Admin: 06/06/18 10:31 Dose: 25 mg Ondansetron HCl (Zofran Tab) 4 mg GT Q6 PRN PRN Reason: Nausea/Vomiting Oxycodone HCl (Oxycodone Immediate Release Tab) 5 mg PO Q6 PRN PRN Reason: Pain, moderate (4-7) Last Admin: 06/06/18 04:57 Dose: 5 mg Rosuvastatin Calcium (Crestor) 5 mg PO HS [facility] Last Admin: 06/05/18 21:02 Dose: 5 mg Saliva Substitute (Mouth Kote 236 Ml) 0 ml MM TID [facility] Last Admin: 06/06/18 17:39 Dose: 1 spr Scopolamine (Transderm-Scop) 1 patch TD Q72 [facility] Sennosides (Senokot Tab) 8.6 mg PEG HS [facility] Last Admin: 06/05/18 21:02 Dose: 8.6 mg - Labs Labs: 06/04/18 05:32 06/04/18 05:32 PT 18.9 SECONDS (9.7-12.2) H 05/30/18 21:02 INR 1.7 05/30/18 21:02 APTT 36 SECONDS (21-34) H 05/30/18 21:02 Assessment and Plan (1) Pneumonia Status: Acute (2) Flu Status: Acute (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
--- NOTE | 2018-06-07 01:23 | PN ---
DATE: 06/06/2018 SUBJECTIVE: The patient was seen and looking comfortable. More awake and alert. Cough is better. Shortness of breath is better. Congestion is better. No fever, no chills. No nausea, vomiting or diarrhea. No headaches, no dizziness. PHYSICAL EXAMINATION: VITAL SIGNS: Temperature 97.6, pulse 66, respiratory rate 18, blood pressure 109/57, pulse oximetry 99. HEENT: Head normocephalic and atraumatic. Eyes, PERRLA. Extraocular muscles intact. Conjunctivae clear. Nose patent. Mucous membranes moist. NECK: Supple. No carotid bruits. No JVD or thyromegaly.left side of face had dressing CHEST: Bilaterally symmetrical. HEART: S1 and S2 positive. LUNGS: Positive wheezing bilaterally. ABDOMEN: Soft. Bowel sounds present. No organomegaly. EXTREMITIES: extremity, no edema, no cyanosis. moving all 4 ext MEDICATIONS: Acetaminophen, DuoNeb, Norvasc, Eliquis, aspirin, Pepcid, Lasix, cefepime, gentamicin, Synthroid, Lopressor, Zofran, oxycodone, Crestor, scopolamine. LABORATORY DATA: We do not have recent labs today, but reviewed old labs. ASSESSMENT AND PLAN: Ms. Ghada Becerra is a 67 years old lady with leukocytosis, anemia, hypochloremia, renal insufficiency, hyperglycemia, has pneumonia, flu got treatment, carcinoma of the parotid gland, deep vein thrombosis. GI and DVT prophylaxis given. The patient is DNR and DNI. Reviewed Dr. Patterson and Dr. Abraham's notes. Repeat labs. We will follow up. Faviola Catherine MD SHAMAR
[2018-06-07] MEDS: Albuterol-Ipratrop 3 mg / 0.5 (3 ml) UD INH SCH ×4 (02:15→21:25)
[2018-06-07] MEDS: Acetaminophen 650mg/20.3ml solution UD PO PRN ×2 (06:20→14:09)
[2018-06-07] MEDS: Levothyroxine 25 MCG TAB GT SCH (06:22)
--- NOTE | 2018-06-07 13:18 | CP.PCM.PN ---
Subjective - Date & Time of Evaluation Date of Evaluation: 06/07/18 Time of Evaluation: 09:00 - Subjective Subjective: still with thick green phlegm cont iv rx genta level ok Objective - Vital Signs/Intake and Output Vital Signs (last 24 hours): Temp Pulse Resp BP Pulse Ox 98.1 F 63 20 116/62 98 06/07/18 07:00 06/07/18 07:00 06/07/18 07:00 06/07/18 10:03 06/07/18 07:00 Intake and Output: 06/07/18 06/07/18 06:59 18:59 Intake Total 1200 Output Total 850 Balance 350 - Medications Medications: Current Medications Acetaminophen (Tylenol 650mg/20.3ml Solution Ud) 650 mg PO Q6H PRN PRN Reason: Pain, Mild (1-3) Last Admin: 06/07/18 06:20 Dose: 650 mg Albuterol/Ipratropium (Duoneb 3 Mg/0.5 Mg (3 Ml) Ud) 3 ml INH RQ6 [facility] Last Admin: 06/07/18 07:41 Dose: 3 ml Amlodipine Besylate (Norvasc) 10 mg GT DAILY [facility] Last Admin: 06/07/18 10:04 Dose: 10 mg Apixaban (Eliquis) 5 mg GT BID [facility] Last Admin: 06/07/18 10:10 Dose: 5 mg Artificial Tears (Artificial Tears Refresh Celluvisc) 0 ml OU Q6H PRN Aspirin (Aspirin Chewable) 81 mg GT DAILY [facility] Last Admin: 06/07/18 10:04 Dose: 81 mg Famotidine (Pepcid) 20 mg GT Q12 [facility] Last Admin: 06/07/18 11:04 Dose: 20 mg Furosemide (Lasix) 20 mg PEG DAILY [facility] Last Admin: 06/07/18 10:03 Dose: 20 mg Cefepime HCl 1 gm/ Dextrose 50 mls @ 100 mls/hr IVPB Q12H [facility]; Protocol Last Admin: 06/07/18 00:02 Dose: 100 mls/hr Gentamicin Sulfate 60 mg/ (Sodium Chloride) 101.5 mls @ 100 mls/hr IVPB Q12 [facility]; Protocol Last Admin: 06/07/18 10:04 Dose: 100 mls/hr Levothyroxine Sodium (Synthroid) 25 mcg GT DAILY@0630 [facility] Last Admin: 06/07/18 06:22 Dose: 25 mcg Metoprolol Tartrate (Lopressor) 25 mg GT Q12 [facility] Last Admin: 06/07/18 10:03 Dose: 25 mg Ondansetron HCl (Zofran Tab) 4 mg GT Q6 PRN PRN Reason: Nausea/Vomiting Oxycodone HCl (Oxycodone Immediate Release Tab) 5 mg PO Q6 PRN PRN Reason: Pain, moderate (4-7) Last Admin: 06/06/18 04:57 Dose: 5 mg Rosuvastatin Calcium (Crestor) 5 mg PO HS [facility] Last Admin: 06/06/18 21:14 Dose: 5 mg Saliva Substitute (Mouth Kote 236 Ml) 0 ml MM TID [facility] Last Admin: 06/07/18 11:07 Dose: 1 spr Scopolamine (Transderm-Scop) 1 patch TD Q72 [facility] Sennosides (Senokot Tab) 8.6 mg PEG [facility] Last Admin: 06/06/18 21:14 Dose: 8.6 mg - Labs Labs: 06/04/18 05:32 06/04/18 05:32 PT 18.9 SECONDS (9.7-12.2) H 05/30/18 21:02 INR 1.7 05/30/18 21:02 APTT 36 SECONDS (21-34) H 05/30/18 21:02 - Constitutional Appears: Non-toxic, Chronically Ill - Head Exam Head Exam: NORMOCEPHALIC - Eye Exam Eye Exam: PERRL - ENT Exam ENT Exam: Mucous Membranes Dry. 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
--- NOTE | 2018-06-07 14:44 | CP.PCM.PN ---
Subjective - Date & Time of Evaluation Date of Evaluation: 06/07/18 Time of Evaluation: 09:20 - Subjective Subjective: patient seen and examined Clinically improving Less congestion and shortness of breath Afebrile On high flow oxygen Objective - Vital Signs/Intake and Output Vital Signs (last 24 hours): Temp Pulse Resp BP Pulse Ox 98.1 F 63 20 116/62 98 06/07/18 07:00 06/07/18 07:00 06/07/18 07:00 06/07/18 10:03 06/07/18 07:00 Intake and Output: 06/07/18 06/07/18 06:59 18:59 Intake Total 1200 Output Total 850 300 Balance 350 -300 - Medications Medications: Current Medications Acetaminophen (Tylenol 650mg/20.3ml Solution Ud) 650 mg PO Q6H PRN PRN Reason: Pain, Mild (1-3) Last Admin: 06/07/18 14:09 Dose: 650 mg Albuterol/Ipratropium (Duoneb 3 Mg/0.5 Mg (3 Ml) Ud) 3 ml INH RQ6 [facility] Last Admin: 06/07/18 13:56 Dose: 3 ml Amlodipine Besylate (Norvasc) 10 mg GT DAILY [facility] Last Admin: 06/07/18 10:04 Dose: 10 mg Apixaban (Eliquis) 5 mg GT BID [facility] Last Admin: 06/07/18 10:10 Dose: 5 mg Artificial Tears (Artificial Tears Refresh Celluvisc) 0 ml OU Q6H PRN Aspirin (Aspirin Chewable) 81 mg GT DAILY [facility] Last Admin: 06/07/18 10:04 Dose: 81 mg Famotidine (Pepcid) 20 mg GT Q12 [facility] Last Admin: 06/07/18 11:04 Dose: 20 mg Furosemide (Lasix) 20 mg PEG DAILY [facility] Last Admin: 06/07/18 10:03 Dose: 20 mg Cefepime HCl 1 gm/ Dextrose 50 mls @ 100 mls/hr IVPB Q12H [facility]; Protocol Last Admin: 06/07/18 13:45 Dose: 100 mls/hr Gentamicin Sulfate 60 mg/ (Sodium Chloride) 101.5 mls @ 100 mls/hr IVPB Q12 [facility]; Protocol Last Admin: 06/07/18 10:04 Dose: 100 mls/hr Levothyroxine Sodium (Synthroid) 25 mcg GT DAILY@0630 [facility] Last Admin: 06/07/18 06:22 Dose: 25 mcg Metoprolol Tartrate (Lopressor) 25 mg GT Q12 [facility] Last Admin: 06/07/18 10:03 Dose: 25 mg Ondansetron HCl (Zofran Tab) 4 mg GT Q6 PRN PRN Reason: Nausea/Vomiting Oxycodone HCl (Oxycodone Immediate Release Tab) 5 mg PO Q6 PRN PRN Reason: Pain, moderate (4-7) Last Admin: 06/06/18 04:57 Dose: 5 mg Rosuvastatin Calcium (Crestor) 5 mg PO HS [facility] Last Admin: 06/06/18 21:14 Dose: 5 mg Saliva Substitute (Mouth Kote 236 Ml) 0 ml MM TID [facility] Last Admin: 06/07/18 14:18 Dose: 1 spr Scopolamine (Transderm-Scop) 1 patch TD Q72 [facility] Sennosides (Senokot Tab) 8.6 mg PEG [facility] Last Admin: 06/06/18 21:14 Dose: 8.6 mg - Labs Labs: 06/04/18 05:32 06/04/18 05:32 PT 18.9 SECONDS (9.7-12.2) H 05/30/18 21:02 INR 1.7 05/30/18 21:02 APTT 36 SECONDS (21-34) H 05/30/18 21:02 - Head Exam Head Exam: ATRAUMATIC, NORMOCEPHALIC - ENT Exam ENT Exam: Mucous Membranes Moist - Neck Exam Neck Exam: Normal Inspection - Respiratory Exam Respiratory Exam: Rales, Rhonchi - Cardiovascular Exam Cardiovascular Exam: REGULAR RHYTHM - GI/Abdominal Exam GI & Abdominal Exam: Soft Assessment and Plan (1) Pneumonia Assessment & Plan: followup chest x-ray antibiotics Nebulizer treatment Status: Acute (2) Flu Status: Acute (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
[2018-06-07] MEDS: oxyCODONE 5 mg Immediate Release Tab PO PRN (19:32)
[2018-06-08] MEDS: Albuterol-Ipratrop 3 mg / 0.5 (3 ml) UD INH SCH ×4 (01:35→18:59)
[2018-06-08] MEDS: oxyCODONE 5 mg Immediate Release Tab PO PRN ×2 (05:48→20:24)
[2018-06-08] MEDS: Levothyroxine 25 MCG TAB GT SCH (05:49)
[2018-06-08 06:29] LABS: BASO # 0.1 K/uL (0.0-0.2); BASO % 0.7 % (0.0-2.0); EOS # 0.3 K/uL (0.0-0.7); EOS % 2.3 % (0.0-4.0); HEMOGLOBIN 9.3 g/dL (11.0-16.0); LYMPH # 1.2 K/uL (1.0-4.3); LYMPH % 10.9 % (20.0-40.0); MEAN CORPUSCULAR HEMOGLOBIN 24.7 pg (27.0-31.0); MEAN CORPUSCULAR HGB CONC 32.1 g/dL (33.0-37.0); MEAN PLATELET VOLUME 8.2 fL (7.2-11.7); MONO % 8.8 % (0.0-10.0); NEUT # 8.5 K/uL (1.8-7.0); NEUT % 77.3 % (50.0-75.0); RBC 3.76 Mil/uL (3.80-5.20); RED CELL DISTRIBUTION WIDTH 18.8 % (11.5-14.5)
[2018-06-08 07:31] LABS: ALB/GLOB RATIO 0.9 (1.0-2.1); ALBUMIN 3.2 g/dL (3.5-5.0); ALT/SGPT 24 U/L (9-52); AST/SGOT 20 U/L (14-36); BLOOD UREA NITROGEN 27 mg/dL (7-17); CALCIUM 9.4 mg/dl (8.6-10.4); GFR NON-AFRICAN AMERICAN > 60
--- NOTE | 2018-06-08 12:52 | CP.PCM.PN ---
Subjective - Date & Time of Evaluation Date of Evaluation: 06/08/18 Time of Evaluation: 09:00 - Subjective Subjective: remains afeb secretions + Objective - Vital Signs/Intake and Output Vital Signs (last 24 hours): Temp Pulse Resp BP Pulse Ox 97.6 F 68 18 117/68 83 L 06/08/18 07:00 06/08/18 07:00 06/08/18 07:00 06/08/18 10:45 06/08/18 12:25 Intake and Output: 06/08/18 06/08/18 06:59 18:59 Intake Total 1260 Output Total 400 Balance 860 - Medications Medications: Current Medications Acetaminophen (Tylenol 650mg/20.3ml Solution Ud) 650 mg PO Q6H PRN PRN Reason: Pain, Mild (1-3) Last Admin: 06/07/18 14:09 Dose: 650 mg Albuterol/Ipratropium (Duoneb 3 Mg/0.5 Mg (3 Ml) Ud) 3 ml INH RQ6 [facility] Last Admin: 06/08/18 07:58 Dose: 3 ml Amlodipine Besylate (Norvasc) 10 mg GT DAILY [facility] Last Admin: 06/08/18 10:44 Dose: 10 mg Apixaban (Eliquis) 5 mg GT BID [facility] Last Admin: 06/08/18 10:44 Dose: 5 mg Artificial Tears (Artificial Tears Refresh Celluvisc) 0 ml OU Q6H PRN Aspirin (Aspirin Chewable) 81 mg GT DAILY [facility] Last Admin: 06/08/18 10:45 Dose: 81 mg Famotidine (Pepcid) 20 mg GT Q12 [facility] Last Admin: 06/08/18 10:44 Dose: 20 mg Furosemide (Lasix) 20 mg PEG DAILY [facility] Last Admin: 06/08/18 10:45 Dose: Not Given Cefepime HCl 1 gm/ Dextrose 50 mls @ 100 mls/hr IVPB Q12H [facility]; Protocol Last Admin: 06/08/18 00:13 Dose: 100 mls/hr Gentamicin Sulfate 60 mg/ (Sodium Chloride) 101.5 mls @ 100 mls/hr IVPB Q12 [facility]; Protocol Last Admin: 06/08/18 10:45 Dose: 100 mls/hr Levothyroxine Sodium (Synthroid) 25 mcg GT DAILY@0630 [facility] Last Admin: 06/08/18 05:49 Dose: 25 mcg Metoprolol Tartrate (Lopressor) 25 mg GT Q12 [facility] Last Admin: 06/08/18 10:45 Dose: 25 mg Ondansetron HCl (Zofran Tab) 4 mg GT Q6 PRN PRN Reason: Nausea/Vomiting Oxycodone HCl (Oxycodone Immediate Release Tab) 5 mg PO Q6 PRN PRN Reason: Pain, moderate (4-7) Last Admin: 06/08/18 05:48 Dose: 5 mg Rosuvastatin Calcium (Crestor) 5 mg PO HS [facility] Last Admin: 06/07/18 22:08 Dose: 5 mg Saliva Substitute (Mouth Kote 236 Ml) 0 ml MM TID [facility] Last Admin: 06/08/18 10:45 Dose: 1 spr Scopolamine (Transderm-Scop) 1 patch TD Q72 [facility] Sennosides (Senokot Tab) 8.6 mg PEG HS [facility] Last Admin: 06/07/18 22:10 Dose: 8.6 mg - Labs Labs: 06/08/18 06:23 06/08/18 06:23 PT 18.9 SECONDS (9.7-12.2) H 05/30/18 21:02 INR 1.7 05/30/18 21:02 APTT 36 SECONDS (21-34) H 05/30/18 21:02 - Constitutional Appears: Cachectic, Chronically Ill - Head Exam Head Exam: NORMOCEPHALIC - Eye Exam Eye Exam: PERRL - ENT Exam ENT Exam: Mucous Membranes Dry - Neck Exam Neck Exam: absent: Lymphadenopathy - Respiratory Exam Respiratory Exam: Decreased Breath Sounds - Cardiovascular Exam Cardiovascular Exam: REGULAR RHYTHM - GI/Abdominal Exam GI & Abdominal Exam: Distended Assessment and Plan (1) 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
--- NOTE | 2018-06-08 14:41 | RAD ---
Date of service: 06/07/2018 PROCEDURE: CHEST RADIOGRAPH, 1 VIEW HISTORY: pneumonia COMPARISON: 05/30/2018 single-view chest. 05/30/2018 CT pulmonary angiogram. 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 PLEURA: No pneumothorax or pleural fluid seen. CARDIOVASCULAR: No radiographic findings to suggest acute or significant cardiovascular disease. Stable configuration of mitral valve prosthesis. OSSEOUS STRUCTURES: No significant abnormalities. VISUALIZED UPPER ABDOMEN: Normal. OTHER FINDINGS: None. IMPRESSION: Stable findings in the lungs.
--- NOTE | 2018-06-08 15:24 | CP.PCM.PN ---
Subjective - Date & Time of Evaluation Date of Evaluation: 06/08/18 Time of Evaluation: 15:22 - Subjective Subjective: PT WAS FOR D/C TO [facility] TODAY. DISCUSSED WITH DR. CAMP AND WE WILL D/C HIGH FLOW O2 AND START NASAL CANNULA 2-3 LPM. IF PT TOLERATES WELL WE WILL D/C HER TOMORROW TO [facility]. PER PT'S , ALL QUESTIONS AND CONCERNS HE HAD WERE CLA RIFIED WITH DR. CAMP DURING ROUNDS. PT'S AWARE OF D/C TOMORROW IF NASAL CANNULA IS TOLERATED; HE IS IN AGREEMENT WITH PLAN. NO FURTHER ORDERS. Objective - Vital Signs/Intake and Output Vital Signs (last 24 hours): Temp Pulse Resp BP Pulse Ox 97.6 F 68 18 117/68 83 L 06/08/18 07:00 06/08/18 07:00 06/08/18 07:00 06/08/18 10:45 06/08/18 12:25 Intake and Output: 06/08/18 06/08/18 06:59 18:59 Intake Total 1260 Output Total 400 Balance 860 - Medications Medications: Current Medications Acetaminophen (Tylenol 650mg/20.3ml Solution Ud) 650 mg PO Q6H PRN PRN Reason: Pain, Mild (1-3) Last Admin: 06/07/18 14:09 Dose: 650 mg Albuterol/Ipratropium (Duoneb 3 Mg/0.5 Mg (3 Ml) Ud) 3 ml INH RQ6 [facility] Last Admin: 06/08/18 13:33 Dose: 3 ml Amlodipine Besylate (Norvasc) 10 mg GT DAILY [facility] Last Admin: 06/08/18 10:44 Dose: 10 mg Apixaban (Eliquis) 5 mg GT BID [facility] Last Admin: 06/08/18 10:44 Dose: 5 mg Artificial Tears (Artificial Tears Refresh Celluvisc) 0 ml OU Q6H PRN Aspirin (Aspirin Chewable) 81 mg GT DAILY [facility] Last Admin: 06/08/18 10:45 Dose: 81 mg Famotidine (Pepcid) 20 mg GT Q12 [facility] Last Admin: 06/08/18 10:44 Dose: 20 mg Furosemide (Lasix) 20 mg PEG DAILY [facility] Last Admin: 06/08/18 10:45 Dose: Not Given Cefepime HCl 1 gm/ Dextrose 50 mls @ 100 mls/hr IVPB Q12H [facility]; Protocol Last Admin: 06/08/18 13:04 Dose: 100 mls/hr Gentamicin Sulfate 60 mg/ (Sodium Chloride) 101.5 mls @ 100 mls/hr IVPB Q12 [facility]; Protocol Last Admin: 06/08/18 10:45 Dose: 100 mls/hr Levothyroxine Sodium (Synthroid) 25 mcg GT DAILY@0630 [facility] Last Admin: 06/08/18 05:49 Dose: 25 mcg Metoprolol Tartrate (Lopressor) 25 mg GT Q12 [facility] Last Admin: 06/08/18 10:45 Dose: 25 mg Ondansetron HCl (Zofran Tab) 4 mg GT Q6 PRN PRN Reason: Nausea/Vomiting Oxycodone HCl (Oxycodone Immediate Release Tab) 5 mg PO Q6 PRN PRN Reason: Pain, moderate (4-7) Last Admin: 06/08/18 05:48 Dose: 5 mg Rosuvastatin Calcium (Crestor) 5 mg PO HS [facility] Last Admin: 06/07/18 22:08 Dose: 5 mg Saliva Substitute (Mouth Kote 236 Ml) 0 ml MM TID [facility] Last Admin: 06/08/18 13:04 Dose: 1 spr Scopolamine (Transderm-Scop) 1 patch TD Q72 [facility] Sennosides (Senokot Tab) 8.6 mg PEG HS [facility] Last Admin: 06/07/18 22:10 Dose: 8.6 mg - Labs Labs: 06/08/18 06:23 06/08/18 06:23 PT 18.9 SECONDS (9.7-12.2) H 05/30/18 21:02 INR 1.7 05/30/18 21:02 APTT 36 SECONDS (21-34) H 05/30/18 21:02
--- NOTE | 2018-06-08 16:52 | CP.PCM.PN ---
Subjective - Date & Time of Evaluation Date of Evaluation: 06/08/18 Time of Evaluation: 12:45 - Subjective Subjective: Patient seen and examined Last cough and shortness of breath On high flow oxygen Afebrile Chest x-ray noted Objective - Vital Signs/Intake and Output Vital Signs (last 24 hours): Temp Pulse Resp BP Pulse Ox 98.2 F 73 20 111/68 100 06/08/18 16:43 06/08/18 16:43 06/08/18 16:43 06/08/18 16:43 06/08/18 16:43 Intake and Output: 06/08/18 06/08/18 06:59 18:59 Intake Total 1260 Output Total 400 Balance 860 - Medications Medications: Current Medications Acetaminophen (Tylenol 650mg/20.3ml Solution Ud) 650 mg PO Q6H PRN PRN Reason: Pain, Mild (1-3) Last Admin: 06/07/18 14:09 Dose: 650 mg Albuterol/Ipratropium (Duoneb 3 Mg/0.5 Mg (3 Ml) Ud) 3 ml INH RQ6 [facility] Last Admin: 06/08/18 13:33 Dose: 3 ml Amlodipine Besylate (Norvasc) 10 mg GT DAILY [facility] Last Admin: 06/08/18 10:44 Dose: 10 mg Apixaban (Eliquis) 5 mg GT BID [facility] Last Admin: 06/08/18 10:44 Dose: 5 mg Artificial Tears (Artificial Tears Refresh Celluvisc) 0 ml OU Q6H PRN Aspirin (Aspirin Chewable) 81 mg GT DAILY [facility] Last Admin: 06/08/18 10:45 Dose: 81 mg Famotidine (Pepcid) 20 mg GT Q12 [facility] Last Admin: 06/08/18 10:44 Dose: 20 mg Furosemide (Lasix) 20 mg PEG DAILY [facility] Last Admin: 06/08/18 10:45 Dose: Not Given Cefepime HCl 1 gm/ Dextrose 50 mls @ 100 mls/hr IVPB Q12H [facility]; Protocol Last Admin: 06/08/18 13:04 Dose: 100 mls/hr Gentamicin Sulfate 60 mg/ (Sodium Chloride) 101.5 mls @ 100 mls/hr IVPB Q12 [facility]; Protocol Last Admin: 06/08/18 10:45 Dose: 100 mls/hr Levothyroxine Sodium (Synthroid) 25 mcg GT DAILY@0630 [facility] Last Admin: 06/08/18 05:49 Dose: 25 mcg Metoprolol Tartrate (Lopressor) 25 mg GT Q12 [facility] Last Admin: 06/08/18 10:45 Dose: 25 mg Ondansetron HCl (Zofran Tab) 4 mg GT Q6 PRN PRN Reason: Nausea/Vomiting Oxycodone HCl (Oxycodone Immediate Release Tab) 5 mg PO Q6 PRN PRN Reason: Pain, moderate (4-7) Last Admin: 06/08/18 05:48 Dose: 5 mg Rosuvastatin Calcium (Crestor) 5 mg PO HS [facility] Last Admin: 06/07/18 22:08 Dose: 5 mg Saliva Substitute (Mouth Kote 236 Ml) 0 ml MM TID [facility] Last Admin: 06/08/18 13:04 Dose: 1 spr Scopolamine (Transderm-Scop) 1 patch TD Q72 [facility] Sennosides (Senokot Tab) 8.6 mg PEG [facility] Last Admin: 06/07/18 22:10 Dose: 8.6 mg - Labs Labs: 06/08/18 06:23 06/08/18 06:23 PT 18.9 SECONDS (9.7-12.2) H 05/30/18 21:02 INR 1.7 05/30/18 21:02 APTT 36 SECONDS (21-34) H 05/30/18 21:02 - Head Exam Head Exam: ATRAUMATIC, NORMOCEPHALIC - ENT Exam ENT Exam: Mucous Membranes Moist - Neck Exam Neck Exam: Normal Inspection - Respiratory Exam Respiratory Exam: Rales, Rhonchi - Cardiovascular Exam Cardiovascular Exam: REGULAR RHYTHM - GI/Abdominal Exam GI & Abdominal Exam: Soft, Normal Bowel Sounds - Extremities Exam Extremities Exam: Normal Inspection - Neurological Exam Neurological Exam: Awake Assessment and Plan (1) Pneumonia Assessment & Plan: Continue IV antibiotics Discontinue high flow oxygen and switch to nasal cannula and monitor saturation CAT scan of the chest in 2 weeks Status: Acute (2) Flu Status: Acute (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
[2018-06-09] MEDS: Albuterol-Ipratrop 3 mg / 0.5 (3 ml) UD INH SCH ×3 (02:43→13:40)
[2018-06-09] MEDS: oxyCODONE 5 mg Immediate Release Tab PO PRN (04:17)
--- NOTE | 2018-06-09 04:20 | PN ---
DATE: 06/07/2018 SUBJECTIVE: The patient was seen and examined at the bedside on 06/07/2018, looking comfortable, no change in status. Plan was to discharge the patient to home today, but because of oxygen situation, the patient was not able to go. Dr. Patterson discontinued high-flow oxygen and started 2 to 3 liters with nasal cannula. If patient tolerates it well, then we will discharge the patient to [facility] tomorrow to [facility]. Dr. Patterson spoke to the patient's , all questions were answered. No fever, no chills. No nausea, vomiting, diarrhea. PHYSICAL EXAMINATION: VITAL SIGNS: Temperature 97.6, pulse 68, respiratory rate 18, blood pressure 117/58. HEENT: Head normocephalic, atraumatic. Eyes PERRLA. Extraocular movements intact. Conjunctivae clear. Nose patent. Mucous membranes moist. Left side of the face is covered with a dressing. NECK: Supple. No carotid bruits, JVD, or thyromegaly. HEART: S1, S2 positive. ABDOMEN: Soft. Bowel sounds present. No organomegaly. EXTREMITIES: No edema, no cyanosis. NEUROLOGIC: The patient is awake, alert. Moving all four extremities. No focal deficits. MEDICATIONS: Acetaminophen, DuoNeb, Norvasc, Eliquis, Artificial Tears, aspirin, Pepcid, Lasix, cefepime, gentamicin, levothyroxine, metoprolol, Zofran, oxycodone, Crestor, transdermal scopolamine patch, Senokot. LABORATORY DATA: White blood cells 11, hemoglobin 9.2, hematocrit 29, platelets 370. Sodium 130, potassium 4.5, BUN 27, creatinine 0.4, glucose 126. ASSESSMENT AND PLAN: Ms. Ghada Becerra is a 67-year-old lady with leukocytosis, anemia, hypochloremia, renal insufficiency, hyperglycemia, has multiple medical problems, was getting rehab in [facility] team here due to intractable cough and shortness of breath. The patient was admitted with pneumonia, got antibiotics, flu got better; carcinoma of the parotid gland, deep vein thrombosis. Treatment given, improved, and seen by Dr. Bashir Patterson, tailoring teacher; Dr. Mahesh Abraham, Infectious Diseases. Now, discontinue high flow-oxygen and start with regular oxygen with 2 to 3 liters nasal cannula. Feeling better. Repeat labs tomorrow. We will plan discharge. Faviola Catherine MD [facility]
--- NOTE | 2018-06-09 05:24 | PN ---
DATE: 06/07/2018 SUBJECTIVE: The patient is a 67-year-old female. The patient was seen and examined at the bedside on 06/07/2018. No change in the status. Clinically improving. Actually, less congestion, lest shortness of breath. Afebrile. On high-flow oxygen. PHYSICAL EXAMINATION: VITAL SIGNS: Temperature 98.1, pulse 63, respiratory rate 20, blood pressure 116/62, pulse oximetry 98. HEENT: Head, normocephalic and atraumatic. Eyes, PERRLA. Extraocular muscles intact. Conjunctivae clear. Nose patent. Mucous membranes moist. Left side of the face has a dressing. NECK: Supple. No carotid bruits. CHEST: Clear to auscultation. ABDOMEN: Soft. Bowel sounds present. No organomegaly. EXTREMITIES: No edema, no cyanosis. NEUROLOGIC: The patient is awake, alert. Moving all four extremities. No focal deficits. MEDICATIONS: Tylenol, albuterol, amlodipine, Eliquis, aspirin, Pepcid, Lasix, cefepime, gentamicin, levothyroxine, Lopressor, oxycodone, and pravastatin. LABORATORY DATA: White blood cells 15.7, hemoglobin 9, hematocrit 27.7, and platelets 388. Sodium 138, potassium 4.7, BUN 28, creatinine 0.4, and glucose 141. ASSESSMENT AND PLAN: Ms. Ghada Becerra is a 67-year-old lady with leukocytosis, anemia, hyperglycemia, hypochloremia, renal insufficiency who was admitted for pneumonia, getting antibiotics, nebulizer treatment, needs followup chest x-ray. The patient has flu, got treatment. Carcinoma of the parotid gland, status post chemotherapy and radiation therapy. Deep vein thrombosis, acute. Infectious Disease and Pulmonary are on the case. Appreciated their help. Repeat labs. We will follow up. Faviola Catherine MD
[2018-06-09] MEDS: Levothyroxine 25 MCG TAB GT SCH (06:11)
[2018-06-09 07:55] LABS: BLOOD UREA NITROGEN 25 mg/dL (7-17); CALCIUM 9.5 mg/dl (8.6-10.4); GFR NON-AFRICAN AMERICAN > 60
[2018-06-09] MEDS ORDERED: Aritificial Tears (15ml) OU PRN (10:45)
--- NOTE | 2018-06-09 13:18 | CP.PCM.PN ---
Subjective - Date & Time of Evaluation Date of Evaluation: 06/09/18 Time of Evaluation: 13:18 - Subjective Subjective: PT SEEN BY DR. PAUL THIS MORNING AND CLEARED FOR D/C TO [facility] TODAY. ALSO CLEARED BY DR. CAMP TODAY. I DISCUSSED WITH DR. LINDSEY THE IV ABX DURATION AND WE WILL CONTINUE IV GENTA FOR 5 MORE DAYS. PT TO HAVE MIDLINE INSERTED PRIOR TO D/C FOR THE IV ABX. SW AWARE AND WILL ARRANGE TRANSPORTATION. AND PT AWARE OF D/C PLAN AND ARE IN AGREEMENT. NO FURTHER ORDERS. -CONTACT DR. PAUL FOR ANY QUESTIONS REGARDING RECENT HOSPITALIZATION. -MIDLINE CARE PER FACILITY PROTOCOL---MAY BE REMOVED AFTER 06/13, ONCE THE IV ANTIBIOTIC REGIMEN HAS BEEN COMPLETED. -PER DR. LINDSEY (ID) CONTINUE THE FOLLOWING: GENTAMICIN 60 MG IV Q12 HOURS FOR 5 MORE DAYS (START WITH EVENING DOSE ON 06/09/18 AND LAST DAY TO BE GIVEN IS 06/13/18). -CONTINUE OTHER MEDICATIONS PER MED REC FORM--CHANGES CAN BE MADE BY ATTENDING. -CONTINUE G-TUBE FEEDINGS FOLLOWED: GLUCERNA 1.5 TO RUN CONTINUOUSLY AT 50 ML/HR; WATER FLUSH OF 100 ML Q8 HOURS. -ASPIRATION PRECAUTIONS. Objective - Vital Signs/Intake and Output Vital Signs (last 24 hours): Temp Pulse Resp BP Pulse Ox 98.1 F 76 20 111/76 96 06/09/18 07:00 06/09/18 07:00 06/09/18 07:00 06/09/18 10:27 06/09/18 07:00 Intake and Output: 06/09/18 06/09/18 06:59 18:59 Intake Total 500 Output Total 500 Balance 0 - Medications Medications: Current Medications Acetaminophen (Tylenol 650mg/20.3ml Solution Ud) 650 mg PO Q6H PRN PRN Reason: Pain, Mild (1-3) Last Admin: 06/07/18 14:09 Dose: 650 mg Albuterol/Ipratropium (Duoneb 3 Mg/0.5 Mg (3 Ml) Ud) 3 ml INH RQ6 [facility] Last Admin: 06/09/18 07:20 Dose: 3 ml Amlodipine Besylate (Norvasc) 10 mg GT DAILY [facility] Last Admin: 06/09/18 10:26 Dose: 10 mg Apixaban (Eliquis) 5 mg GT BID [facility] Last Admin: 06/09/18 10:26 Dose: 5 mg Artificial Tears (Artificial Tears) 0 ml OU Q6H PRN Aspirin (Aspirin Chewable) 81 mg GT DAILY [facility] Last Admin: 06/09/18 10:25 Dose: 81 mg Famotidine (Pepcid) 20 mg GT Q12 [facility] Last Admin: 06/09/18 10:26 Dose: 20 mg Furosemide (Lasix) 20 mg PEG DAILY [facility] Last Admin: 06/09/18 10:27 Dose: 20 mg Cefepime HCl 1 gm/ Dextrose 50 mls @ 100 mls/hr IVPB Q12H [facility]; Protocol Last Admin: 06/09/18 00:14 Dose: 100 mls/hr Gentamicin Sulfate 60 mg/ (Sodium Chloride) 101.5 mls @ 100 mls/hr IVPB Q12 [facility]; Protocol Last Admin: 06/09/18 10:26 Dose: 100 mls/hr Levothyroxine Sodium (Synthroid) 25 mcg GT DAILY@0630 [facility] Last Admin: 06/09/18 06:11 Dose: 25 mcg Metoprolol Tartrate (Lopressor) 25 mg GT Q12 [facility] Last Admin: 06/09/18 10:25 Dose: 25 mg Ondansetron HCl (Zofran Tab) 4 mg GT Q6 PRN PRN Reason: Nausea/Vomiting Oxycodone HCl (Oxycodone Immediate Release Tab) 5 mg PO Q6 PRN PRN Reason: Pain, moderate (4-7) Last Admin: 06/09/18 04:17 Dose: 5 mg Rosuvastatin Calcium (Crestor) 5 mg PO HS [facility] Last Admin: 06/08/18 21:43 Dose: 5 mg Saliva Substitute (Mouth Kote 236 Ml) 0 ml MM TID [facility] Last Admin: 06/09/18 10:27 Dose: 1 spr Scopolamine (Transderm-Scop) 1 patch TD Q72 [facility] Sennosides (Senokot Tab) 8.6 mg PEG HS [facility] Last Admin: 06/08/18 21:43 Dose: 8.6 mg - Labs Labs: 06/08/18 06:23 06/09/18 07:25 PT 18.9 SECONDS (9.7-12.2) H 05/30/18 21:02 INR 1.7 05/30/18 21:02 APTT 36 SECONDS (21-34) H 05/30/18 21:02
[2018-06-09] MEDS: Acetaminophen 650mg/20.3ml solution UD PO PRN (14:12)
--- NOTE | 2018-06-09 15:59 | CP.PCM.PN ---
Subjective - Date & Time of Evaluation Date of Evaluation: 06/09/18 Time of Evaluation: 10:20 - Subjective Subjective: Patient seen and examined Saturating well on 2 L Less cough and shortness of breath Afebrile Objective - Vital Signs/Intake and Output Vital Signs (last 24 hours): Temp Pulse Resp BP Pulse Ox 98.1 F 76 20 111/76 96 06/09/18 07:00 06/09/18 07:00 06/09/18 07:00 06/09/18 10:27 06/09/18 07:00 Intake and Output: 06/09/18 06/09/18 06:59 18:59 Intake Total 500 Output Total 500 Balance 0 - Medications Medications: Current Medications Acetaminophen (Tylenol 650mg/20.3ml Solution Ud) 650 mg PO Q6H PRN PRN Reason: Pain, Mild (1-3) Last Admin: 06/09/18 14:12 Dose: 650 mg Albuterol/Ipratropium (Duoneb 3 Mg/0.5 Mg (3 Ml) Ud) 3 ml INH RQ6 [facility] Last Admin: 06/09/18 13:40 Dose: 3 ml Amlodipine Besylate (Norvasc) 10 mg GT DAILY [facility] Last Admin: 06/09/18 10:26 Dose: 10 mg Apixaban (Eliquis) 5 mg GT BID [facility] Last Admin: 06/09/18 10:26 Dose: 5 mg Artificial Tears (Artificial Tears) 0 ml OU Q6H PRN Aspirin (Aspirin Chewable) 81 mg GT DAILY [facility] Last Admin: 06/09/18 10:25 Dose: 81 mg Famotidine (Pepcid) 20 mg GT Q12 [facility] Last Admin: 06/09/18 10:26 Dose: 20 mg Furosemide (Lasix) 20 mg PEG DAILY [facility] Last Admin: 06/09/18 10:27 Dose: 20 mg Cefepime HCl 1 gm/ Dextrose 50 mls @ 100 mls/hr IVPB Q12H [facility]; Protocol Last Admin: 06/09/18 00:14 Dose: 100 mls/hr Gentamicin Sulfate 60 mg/ (Sodium Chloride) 101.5 mls @ 100 mls/hr IVPB Q12 [facility]; Protocol Last Admin: 06/09/18 10:26 Dose: 100 mls/hr Levothyroxine Sodium (Synthroid) 25 mcg GT DAILY@0630 [facility] Last Admin: 06/09/18 06:11 Dose: 25 mcg Metoprolol Tartrate (Lopressor) 25 mg GT Q12 [facility] Last Admin: 06/09/18 10:25 Dose: 25 mg Ondansetron HCl (Zofran Tab) 4 mg GT Q6 PRN PRN Reason: Nausea/Vomiting Rosuvastatin Calcium (Crestor) 5 mg PO HS [facility] Last Admin: 06/08/18 21:43 Dose: 5 mg Saliva Substitute (Mouth Kote 236 Ml) 0 ml MM TID [facility] Last Admin: 06/09/18 10:27 Dose: 1 spr Scopolamine (Transderm-Scop) 1 patch TD Q72 [facility] Sennosides (Senokot Tab) 8.6 mg PEG HS [facility] Last Admin: 06/08/18 21:43 Dose: 8.6 mg - Labs Labs: 06/08/18 06:23 06/09/18 07:25 PT 18.9 SECONDS (9.7-12.2) H 05/30/18 21:02 INR 1.7 05/30/18 21:02 APTT 36 SECONDS (21-34) H 05/30/18 21:02 - Head Exam Head Exam: ATRAUMATIC, NORMOCEPHALIC - ENT Exam ENT Exam: Mucous Membranes Moist - Neck Exam Neck Exam: Normal Inspection - Respiratory Exam Respiratory Exam: Rales, Rhonchi - Cardiovascular Exam Cardiovascular Exam: REGULAR RHYTHM - GI/Abdominal Exam GI & Abdominal Exam: Soft, Normal Bowel Sounds Assessment and Plan (1) Pneumonia Assessment & Plan: stable from pulmonary standpoint Transfer to rehabilitation Continue antibiotics Repeat CAT scan in 2 weeks Status: Acute (2) Flu Status: Acute (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
[2018-06-09 16:21] VITALS: BP 95/55; PULSE 62; RESP 18; TEMP 97.4; O2SAT 97
--- NOTE | 2018-06-13 00:15 | DS ---
The patient is a 67-year-old female. The patient was discharged on 06/09/2018. The patient was seen and examined at the bedside on 06/09/2018. CHIEF COMPLAINT: Shortness of breath. HISTORY OF PRESENT ILLNESS: Ms. Ghada Becerra is a 67-year-old female with past medical history of multiple problems of coronary artery disease, hypertension, hypercholesterolemia, hyperthyroidism who came with shortness of breath that began approximately one hour before ER. 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 The patient was actually getting rehab in [facility], had started shortness of breath from there, presented to [facility]. She already has had two courses of antibiotics for pneumonia, maybe she is aspirating because of her cancer and SP surgery. Readmitted the patient, did CAT scan of the chest. Seen by Dr. Bashir Patterson, country singer; Dr. Mahesh Abraham, Infectious Disease; and Dr. Jacob Miller, crew chief. Dr. Olivares was the oncologist, invited on the case. The patient had , given antibiotics. Discussion done with the and family. Need good followup. The patient improved, discharged back to rehab for completion of the antibiotics. 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 FAMILY HISTORY: Father and mother, noncontributory. HABITS: No smoking, no drug, no ethanol. ALLERGIES: THE PATIENT IS NOT ALLERGIC TO ANY MEDICATIONS. MEDICATIONS: Home medications are reviewed by me. REVIEW OF SYSTEMS: The patient was seen and examined at bedside, looking comfortable. Multiple times had discussion done with . Congestion is better. Shortness of breath is better. No fever. No chills. No hematuria or hematochezia. Saturating well with 2 L oxygen, used to be on high-flow, now put on 2 L as per country singer, improving. Less cough and shortness of breath. PHYSICAL EXAMINATION: VITAL SIGNS: Temperature 98.1, pulse 73, respiratory rate 20, blood pressure 111/76, and pulse oximetry 96. HEENT: Head is normocephalic and atraumatic. Eyes PERRLA. Extraocular movements intact. Conjunctivae clear. Nose patent. Mucous membranes moist. NECK: Supple. On the left side of the neck and face, there is a dressing at the chronic wound with parotid gland surgery. CHEST: Positive wheezing bilaterally. HEART: S1 and S2 positive. ABDOMEN: Soft. Bowel sounds present. No organomegaly. EXTREMITIES: No edema. No cyanosis. NEUROLOGIC: The patient is awake and alert. Follows simple commands. MEDICATIONS: Tylenol, Norvasc, Eliquis, Artificial Tears, aspirin, Pepcid, Lasix, cefepime, gentamicin, levothyroxine, metoprolol, and Zofran. LABORATORY DATA: White blood cells 11, hemoglobin 9.2, hematocrit 29, platelets 378. Sodium 138, potassium 4.6, BUN 25, creatinine 0.4, glucose 126. ASSESSMENT AND PLAN: Ms. Ghada Becerra is a 67-year-old lady with hypochloremia, renal insufficiency, hyperglycemia, pneumonia, stable from a pulmonary standpoint, transferred to rehabilitation as per Pulmonary, continue antibiotics there. Repeat CAT scan in two weeks. The patient has flu, got treatment. Carcinoma of the parotid gland. Deep venous thrombosis. The patient was discharged by Zoe Becerra, nurse practitioner. Seen by Infectious Disease, Pulmonary, Cardiology, and Oncology. History of renal insufficiency. nebulizer treatment, used to get high-flow oxygen, now changed to regular oxygen 2 L by nasal cannula, the patient tolerated very well. Carcinoma of the parotid gland, status post chemotherapy and radiation therapy as per family. Infectious Disease and country singer cleared the patient. She will be followed up in subacute rehabilitation by her own doctor. Faviola Catherine MD MTDD
== END 2018-06-09 16:43 | DRG 193 ==
LOC: C.ER 20:45 → C.9E 23:22 → C.6T 23:56
PROVIDERS: ADMIT Internal Medicine; ATTEND Internal Medicine
PROC: 5A09357 Assistance with Respiratory Ventilation, Less than 24 Consecutive Hours, Continuous Positive Airway Pressure (ICD-10-PCS; principal; 2018-05-30)
PROC: 02HV33Z Insertion of Infusion Device into Superior Vena Cava, Percutaneous Approach (ICD-10-PCS; 2018-06-09)
DX: J10.08 Influenza due to other identified influenza virus with other specified pneumonia (principal); J96.00 Acute respiratory failure, unspecified whether with hypoxia or hypercapnia; I69.351 Hemiplegia and hemiparesis following cerebral infarction affecting right dominant side; I82.509 Chronic embolism and thrombosis of unspecified deep veins of unspecified lower extremity; J18.0 Bronchopneumonia, unspecified organism; E86.0 Dehydration; E78.5 Hyperlipidemia, unspecified; E11.65 Type 2 diabetes mellitus with hyperglycemia; E03.9 Hypothyroidism, unspecified; D64.9 Anemia, unspecified; C07 Malignant neoplasm of parotid gland; I11.0 Hypertensive heart disease with heart failure; I50.9 Heart failure, unspecified; I48.91 Unspecified atrial fibrillation; I25.10 Atherosclerotic heart disease of native coronary artery without angina pectoris; Z74.01 Bed confinement status; Z66 Do not resuscitate; I65.23 Occlusion and stenosis of bilateral carotid arteries; Z93.1 Gastrostomy status; Z95.2 Presence of prosthetic heart valve; Z87.891 Personal history of nicotine dependence